=== PATIENT | male | born 1990 | race Caucasian/White ===

== ENCOUNTER 2019-07-10 12:14 | Outpatient (CLI) | payer SELFPAY ==
--- NOTE | 2019-07-10 12:31 | US_ITS ---
WS: [id number] ULTRASOUND ABDOMEN CLINICAL INFORMATION: RUQ PAIN COMPARISON: None. FINDINGS: Liver Size: Normal. Craniocaudal length: 11.1 cm. Echogenicity: Normal. Surface nodularity: None. Mass (size and location): None. Bile ducts Intrahepatic ducts: Normal. Common bile duct diameter: 0.4 cm. Gallbladder Normal. Gallstones: None. Gallbladder sludge: None. Gallbladder wall thickening: None. Pericholecystic fluid: None. Sonographic Thibodeaux sign: Absent. Pancreas Findings Hypoechoic area involving the mid body of the pancreas is indeterminant. Recommend further e valuation with CT abdomen pelvis. Recommend correlation with pancreatic function studies. Spleen Splenomegaly: None. Craniocaudal length: 11.0 cm. Right kidney: Normal. Hydronephrosis: None. Size: 10.8 cm x 5.4 cm x 3.8 cm Left kidney: Normal. Hydronephrosis: None. Size: 10.3 cm x 5.3 cm x 5.1 cm. Abdominal aorta and IVC Visualized portions are normal. Ascites: None. US/US abdomen complete* [id number] IMPRESSION: 1. Liver and gallbladder are normal. 2. Ill-defined hypoechoic lesion involving the body of the pancreas is nonspec ific and may represent artifact but indeterminant. Recommend contrast-enhanced CT abdomen pelvis for better anatomic detail 3. No hydronephrosis in either kidney.
== END 2019-07-10 12:15 | disposition home or self-care (01) ==
LOC: RAD 12:17
PROVIDERS: Family Provider Internal Medicine; Visit Provider Nurse Practitioner Family
DX: R10.11 Right upper quadrant pain (principal)
CPT/HCPCS: 76700

== ENCOUNTER 2019-07-10 17:13 | Emergency (ER) | payer SELFPAY ==
[2019-07-10] VITALS (12 sets, daily range): BP systolic 128–161; BP diastolic 80–84; PULSE 79; RESP 18; TEMP 36.6; O2SAT 95–100; BMI 23.1
--- NOTE | 2019-07-10 18:12 | ED_ITS ---
HPI - Abdominal Pain General: Chief Complaint: Abdominal Pain Stated Complaint: abdominal pain/N/D Time Seen by Provider: 07/10/19 17:30 History of Present Illness: HPI narrative: Patient is a 28-year-old male who comes to the ED with abdominal pain, nausea and vomiting. Symptoms started about 2 days ago. He has had these attacks in the past and the last one was about 5 months ago. His abdominal pain is in the epigastric region and in the right upper quadrant. Abdominal pain is rated an 8 out of 10. pain improves temporarily after he vomits. He says he has had a mild fever in the past 24 hours. Patient states for last 2 days he has not been able to keep anything down. Reflux and nausea get worse when he is laying down. He has a history of acid reflux and was taking ranitidine but stopped after all the recalls for that medication. He has not been taking any acid reflux medications since. Patient says that pain and nausea gets worse when he eats greasy and fatty foods. Patient had a abdominal ultrasound performed earlier today and it showed that the liver and gallbladder were normal but there was an ill-defined hypo-echoic lesion involving the body of the pancreas. CT of abdomen with IV contrast recommended for further evaluation. Associated Symptoms: Reports fever(s), nausea and vomiting; Denies chills, constipation, diarrhea, dysuria, hematochezia and hematuria Review of Systems Const: Reports: fever; Denies: chills or fatigue Eyes: Denies: change in vision or eye discomfort ENMT: Denies: throat pain, painful swallowing, nasal discharge or nasal congestion Card: Denies: chest pain, palpitations, edema, swelling of feet/ankles, shortness of breath on exertion or shortness of breath when lying down Resp: Denies: shortness of breath, productive cough or non-productive cough GI: Reports: abdominal pain (RUQ and epigastric), nausea and vomiting; Denies: diarrhea, constipation or blood in stool : Denies: flank pain, difficulty urinating, painful urination or blood in urine Musc: Denies: neck pain, back pain or extremity swelling Skin/Breast: Denies: rash or new lesion Neuro: Denies: headache, numbness in extremities or weakness in extremities PFS ED PFSH: Social History Smoking and tobacco status: current every day smoker Physical Exam Narrative: EXAM NARRATIVE: Patient is a 28-year-old male who appears in some discomfort when I entered the room. He had just recently vomited and emesis was in the bed next to him. 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; not comfortable HENMT: COMMON NORMALS: normocephalic HEAD & SCALP: normocephalic MOUTH: moist mucous membranes abnormal (mild) Details: parched THROAT: posterior oropharynx normal and uvula midline Eye: COMMON NORMALS: PERRL PUPIL: Yes PERRL Neck/C-Spine: COMMON NORMALS: supple GENERAL: Yes normal visual inspection Lymph: LYMPHATIC: lymphadenopathy (Left anterior cervical lymph node palpated- 2cm nontender) Resp: COMMON NORMALS: normal respiratory effort, no retractions, no use of accessory muscles and clear to auscultation bilaterally AUSCULTATION: clear to auscultation bilaterally Cardio: COMMON NORMALS: regular rate, regular rhythm, S1 normal heart sound, S2 normal heart sound, no gallops, no clicks, no murmurs and peripheral pulses 2+ throughout RATE: regular rate RHYTHM: regular rhythm HEART SOUNDS: S1 normal and S2 normal PERIPHERAL PULSES: pulses 2+ throughout GI: COMMON NORMALS: normal to inspection, nondistended, normoactive bowel sounds, soft to palpation and no masses AUSCULTATION: Yes normoactive bowel sounds PALPATION: Yes soft and Yes tender Details: RUQ (positive thibodeaux's sign) and other (epigastric) : COMMON NORMALS: Yes no CVA tenderness BLADDER/KIDNEY EXAM: Yes no CVA tenderness Back/Pelvis: COMMON NORMALS: no CVA tenderness Extremity: COMMON NORMALS: normal to inspection, normal capillary refill and no pedal edema Neuro: COMMON NORMALS: oriented x3 SENSORIUM/ORIENTATION: Yes alert GAIT: Yes normal gait Skin: COMMON NORMALS: no rashes or lesions noted GENERAL SKIN EXAM: no rashes or lesions noted and dry skin Course Reevaluation(s): Reevaluation #1: I switched patient from IV Zofran to a dose of Reglan IV and patient's nausea improved greatly. He says he is feeling a lot better after the 3 L of normal saline he received through the IV. Patient also states the Protonix given IV has helped his symptoms as well. Vital Signs: Vital signs: Vital Signs Temperature 97.9 F 07/10/19 17:17 Pulse Rate 79 07/10/19 17:17 Respiratory Rate 18 07/10/19 18:30 Blood Pressure 136/84 07/10/19 20:56 Pulse Oximetry 95 07/10/19 23:05 MDM - Abdominal Pain MDM Narrative: Medical decision making narrative: Patient is a 28-year-old male who comes to the ED with epigastric and right upper quadrant pain along with nausea and vomiting. Denies any diarrhea. An abdominal ultrasound was performed this morning before patient came to the ED. the results showed normal gallbladder and no gallstones seen. There was a possible mass seen on the head of the pancreas and a CT of the abdomen with IV contrast is recommended for further evaluation. Physical exam was remarkable for epigastric and right upper quadrant tenderness. Positive Thibodeaux sign. Patient appeared uncomfortable and vomited multiple times while here in the ED. CBC was remarkable for an elevated white blood cell count of 13.1. CMP and lipase were unremarkable. CT of the abdomen pelvis showed diffuse colitis no abscess or free air and an unremarkable appendix. Patient was given 3 L of IV normal saline, Reglan, Protonix, Flagyl and ciprofloxacin. Patient's symptoms greatly improved after treatment. He was feeling a lot better. Patient was then discharged with biliary colic and colitis. Given a prescription for Flagyl, Protonix and Reglan. I instructed patient stop taking Zofran at home and to take the Reglan to help with his nausea. Patient will follow-up with PCP in 5 to 7 days reevaluation. I informed being come back to the ED if his symptoms worsen. Patient understood and agreed with plan. Lab Data: Attestation: I reviewed the patient's lab results. Labs: Lab Results 07/10/19 07/10/19 07/10/19 Range/Units 18:21 18:21 18:21 WBC 13.1 H (4.0-10.0) 10^3/ uL RBC 5.57 H (4.1-5.3) 10^6/u L Hgb 17.5 H (11.7-16.6) g/dL Hct 53.4 H (42.0-52.0) % MCV 95.9 H (80-94) fL MCH 31.4 (28.0-34.0) pg MCHC 32.8 (30.0-36.0) g/dL RDW 12.2 (12.1-15.1) % Plt Count 285 (130-400) 10^3/c mm MPV 9.8 (7.4-10.4) fL Neut % (Auto) 88.5 % Lymph % (Auto) 5.6 % [place] % (Auto) 5.1 % Eos % (Auto) 0.1 % Baso % (Auto) 0.2 % Neut # (Auto) 11.6 H (1.8-7.7) 10^3/u L Lymph # (Auto) 0.7 L (0.8-4.8) 10^3/u L [place] # (Auto) 0.7 (0.2-0.9) 10^3/u L Eos # (Auto) 0.0 (0.0-0.8) 10^3/u L Baso # (Auto) 0.0 (0.0-0.1) 10^3/u L Nucleated RBC % (a uto) 0 % Nucleated RBCs # 0.0 /100WBC Sodium 139 (136-145) mmol/L Potassium 4.6 (3.5-5.1) mmol/L Chloride 97 L (98-107) mmol/L Carbon Dioxide 28 (22-29) mmol/L Anion Gap 18.6 (5-19) BUN 13 (6-20) mg/dL Creatinine 1.2 (0.7-1.2) mg/dL GFR Calculation 71.6 L (90-130) mL/min Glucose 108 (65-115) mg/dL Calculated Osmolal ity 285 (285-295) mOsm/k g Calcium 10.3 (8.5-10.5) mg/dL Total Bilirubin 0.6 (0.15-1.2) mg/dL AST 20 (0-40) U/L ALT 16 (0-41) U/L Alkaline Phosphata se 93 (40-130) IU/L Total Protein 8.4 (6.6-8.7) g/dL Albumin 4.8 (3.5-5.2) g/dL Globulin 3.6 (1.3-4.6) g/dL Lipase 31 (13-60) U/L Urine Color (Yellow) Urine Appearance (CLEAR) Urine pH (5-7) Ur Specific Gravit y (1.005-1.030) Urine Protein (Negative) Urine Glucose (UA) (Normal) Urine Ketones (Negative) Urine Blood (Negative) Urine Nitrate (Negative) Urine Bilirubin (NEGATIVE) Urine Urobilinogen (Negative) mg/dL Ur Leukocyte Moraima ase (Negative) Urine RBC (0-2) /hpf Urine WBC (0-5) /hpf Ur Squamous Epith Cells (0-5) Ur Transition Epit h Cell /hpf Ur Renal Epithelia l Cell /hpf Urine Bacteria (NONE) Urine Mucus H. pylori IgG Anti body Negative (Negative) 07/10/19 Range/Units 22:00 WBC (4.0-10.0) 10^3/ uL RBC (4.1-5.3) 10^6/u L Hgb (11.7-16.6) g/dL Hct (42.0-52.0) % MCV (80-94) fL MCH (28.0-34.0) pg MCHC (30.0-36.0) g/dL RDW (12.1-15.1) % Plt Count (130-400) 10^3/c mm MPV (7.4-10.4) fL Neut % (Auto) % Lymph % (Auto) % [place] % (Auto) % Eos % (Auto) % Baso % (Auto) % Neut # (Auto) (1.8-7.7) 10^3/u L Lymph # (Auto) (0.8-4.8) 10^3/u L [place] # (Auto) (0.2-0.9) 10^3/u L Eos # (Auto) (0.0-0.8) 10^3/u L Baso # (Auto) (0.0-0.1) 10^3/u L Nucleated RBC % (a uto) % Nucleated RBCs # /100WBC Sodium (136-145) mmol/L Potassium (3.5-5.1) mmol/L Chloride (98-107) mmol/L Carbon Dioxide (22-29) mmol/L Anion Gap (5-19) BUN (6-20) mg/dL Creatinine (0.7-1.2) mg/dL GFR Calculation (90-130) mL/min Glucose (65-115) mg/dL Calculated Osmolal ity (285-295) mOsm/k g Calcium (8.5-10.5) mg/dL Total Bilirubin (0.15-1.2) mg/dL AST (0-40) U/L ALT (0-41) U/L Alkaline Phosphata se (40-130) IU/L Total Protein (6.6-8.7) g/dL Albumin (3.5-5.2) g/dL Globulin (1.3-4.6) g/dL Lipase (13-60) U/L Urine Color Yellow (Yellow) Urine Appearance Clear (CLEAR) Urine pH 5 (5-7) Ur Specific Gravit y 1.015 (1.005-1.030) Urine Protein 2+ H (Negative) Urine Glucose (UA) Norm (Normal) Urine Ketones 3+ H (Negative) Urine Blood Neg (Negative) Urine Nitrate Negative (Negative) Urine Bilirubin 1+ H (NEGATIVE) Urine Urobilinogen 1 H (Negative) mg/dL Ur Leukocyte Moraima ase Negative (Negative) Urine RBC 0-4 H (0-2) /hpf Urine WBC None (0-5) /hpf Ur Squamous Epith Cells 0-4 H (0-5) Ur Transition Epit h Cell None /hpf Ur Renal Epithelia l Cell N /hpf Urine Bacteria Trace (NONE) Urine Mucus 4+ H. pylori IgG Anti body (Negative) Imaging Data ^: CT Abd/Pel: Attestation: I personally reviewed and interpreted this imaging study as follows: Radiologist's impression: [place] [address] CT Scan Report Signed Patient: Alvin Dubois Unit #: [id number] : 1990 Age/Sex: 28 / M ADM Date: 07/10/19 Loc: ER Room/Bed: Attending Dr: Ordering Provider/Ordering MD: Tiburcio Best Date of Service: 07/10/19 Procedure(s): CT abdomen pelvis w con* [id number] Accession Number(s): [id number] Report Number: [id number] PROCEDURE INFORMATION: Exam: CT Abdomen And Pelvis With Contrast Exam date and time: 07/10/2019 7:07 PM Age: 28 years old Clinical indication: Nausea and vomiting; Abdominal pain; Prior surgery; Surgery type: Hernia; Additional info: Abdom pain, n/v, TECHNIQUE: Imaging protocol: Computed tomography of the abdomen and pelvis with intravenous contrast. Total DLP: 571.81 mGy-cm Radiation optimization: All CT scans at this facility use at least one of these dose optimization techniques: automated exposure control; mA and/or kV adjustment per patient size (includes targeted exams where dose is matched to clinical indication); or iterative reconstruction. Contrast material: OMNI 3020; Contrast volume: 95 ml; Contrast route: IV; COMPARISON: CT abdomen pelvis w con* [id number] 07/04/2016 9:54 PM FINDINGS: Liver: Unremarkable.No mass. Gallbladder and bile ducts: Normal. No calcified stones. No ductal dilation. Pancreas: Normal. No ductal dilation. Spleen: Normal. No splenomegaly. Adrenals: Normal. No mass. Kidneys and ureters: There is no evidence of hydronephrosis. There is no evidence of renal calcifications. Stomach and bowel: There is diffuse wall thickening of the colon with haziness of the adjacent fat compatible with diffuse colitis. This appearance is very similar to the old exam. The differential diagnosis would include infectious, and pseudomembranous colitis. No diverticulitis. No definite wall thickening of the small bowel. Appendix: A normal appendix is identified. Intraperitoneal space: No fluid collection, free air or abscess. Vasculature: Unremarkable.No abdominal aortic aneurysm. Lymph nodes: Unremarkable.No enlarged lymph nodes. Bladder: The bladder is normal. Reproductive: Unremarkable as visualized. Bones/joints: Unremarkable. No acute fracture. Soft tissues: Unremarkable. Other findings: No ileus or obstruction. CT/CT abdomen pelvis w con* [id number] IMPRESSION: Diffuse colitis. No abscess or free air. Unremarkable appendix. Radiation Dose CTDIVOL = (mGy): DLP = 571.81 (mGy-cm) Dictated By: Ashley Real Signed By: Ashley Real Signed Date/Time: 07/10/191937 DD/ 36 Other Data: Attestation for Other Data: I personally reviewed and interpreted the following: Other Data: Ultrasound was performed this morning at [facility] before patient came to ED. I reviewed this ultrasound report. [address] [place] [address] Ultrasound Report Signed Patient: Alvin Dubois Unit #: [id number] : 1990 Age/Sex: 28 / M ADM Date: 07/10/19 Loc: [facility] Room/Bed: Attending Dr: Niya Hodgson APRN Ordering Provider/Ordering MD: Niya Hodgson APRN Date of Service: 07/10/19 Procedure(s): US abdomen complete* [id number] Accession Number(s): [id number] Report Number: [id number] WS: [id number] ULTRASOUND ABDOMEN CLINICAL INFORMATION: RUQ PAIN COMPARISON: None. FINDINGS: Liver Size: Normal. Craniocaudal length: 11.1 cm. Echogenicity: Normal. Surface nodularity: None. Mass (size and location): None. Bile ducts Intrahepatic ducts: Normal. Common bile duct diameter: 0.4 cm. Gallbladder Normal. Gallstones: None. Gallbladder sludge: None. Gallbladder wall thickening: None. Pericholecystic fluid: None. Sonographic Thibodeaux sign: Absent. Pancreas Findings Hypoechoic area involving the mid body of the pancreas is indeterminant. Recommend further evaluation with CT abdomen pelvis. Recommend correlation with pancreatic function studies. Spleen Splenomegaly: None. Craniocaudal length: 11.0 cm. Right kidney: Normal. Hydronephrosis: None. Size: 10.8 cm x 5.4 cm x 3.8 cm Left kidney: Normal. Hydronephrosis: None. Size: 10.3 cm x 5.3 cm x 5.1 cm. Abdominal aorta and IVC Visualized portions are normal. Ascites: None. US/US abdomen complete* [id number] IMPRESSION: 1. Liver and gallbladder are normal. 2. Ill-defined hypoechoic lesion involving the body of the pancreas is nonspecific and may represent artifact but indeterminant. Recommend contrast-enhanced CT abdomen pelvis for better anatomic detail 3. No hydronephrosis in either kidney. Dictated By: Andi Hutchinson MD Signed By: Andi Hutchinson MD Signed Date/Time: 07/10/19 1259 DD/ 1254 Discharge Plan Discharge Patient Disposition: Home, Self-Care Clinical Impression: Biliary colic symptom, Colitis Condition: Stable Prescriptions: New Reglan 5 mg tablet 10 mg PO Q6H Qty: 30 RF: 0 Protonix 40 mg tablet,delayed release (DR/EC) 40 mg PO DAILY Qty: 30 RF: 0 Flagyl 500 mg tablet 500 mg PO BID 10 Days Qty: 20 RF: 0 No Action Zofran 4 mg Tablet 4 mg PO Q6H PRN (Reason: Nausea) RF: 0 Discharge Orders: Discharge Order (Routine); Ordered 07/10/19 Ordered By: Tiburcio Best Referrals: Benoit Schilling DO [Primary Care Provider] - Discharge Diet: Advance as tolerated Discharge Activity: Increase activity as tolerated Patient Instructions: Biliary Colic (ED) Activity Restrictions/Additional Instructions: Follow-up with your PCP in 5 to 7 days for reevaluation. Take full course of antibiotics as prescribed. Take the Reglan as prescribed for nausea. Stop taking Zofran if you are taking the Reglan daily for nausea. I am also sending you home with a prescription for Protonix and you can take that daily to help with acid reflux. Drink plenty of fluids and stay hydrated. Try to avoid fatty and greasy foods that can cause symptoms. Return to ED if symptoms worsen. Discharge Date/Time: 07/10/19 23:17 Coding Level of Care Code ED Strainer Tender for Mechelle Ellington Exam Comprehensive
[2019-07-10 18:25] LABS: Basophils % 0.2 %; Eosinophils % 0.1 %; Hematocrit 53.4 % (42.0-52.0); Hemoglobin 17.5 g/dL (11.7-16.6); Lymphocytes # 0.7 10^3/uL (0.8-4.8); Lymphocytes % 5.6 %; Mean Corpuscular HGB Conc 32.8 g/dL (30.0-36.0); Mean Corpuscular Hemoglobin 31.4 pg (28.0-34.0); Mean Corpuscular Volume 95.9 fL (80-94); Mean Platelet Volume 9.8 fL (7.4-10.4); Monocytes # 0.7 10^3/uL (0.2-0.9); Monocytes % 5.1 %; Neutrophils # 11.6 10^3/uL (1.8-7.7); Neutrophils % 88.5 %; Nucleated Red Blood Cells % 0 %; Platelet Count 285 10^3/cmm (130-400); Red Blood Count 5.57 10^6/uL (4.1-5.3); Red Cell Distribution Width 12.2 % (12.1-15.1); White Blood Count 13.1 10^3/uL (4.0-10.0)
[2019-07-10] MEDS: ondansetron 2 mg/ML SDV 2 mL 4 MG IVP ×2 (18:27→21:56)
[2019-07-10] MEDS: morphine 4 mg/mL SDV 1 mL IVP (18:30)
[2019-07-10] MEDS: sodium chloride 0.9% 1,000 ML 999 ML IV ×3 (18:31→21:59)
[2019-07-10] MEDS: lidocaine 2% viscous 15 ML, aluminum-mag hydrox-simethicon 30 ML, sucralfate oral liq 1 GM PO (18:32)
[2019-07-10 18:41] LABS: Alanine Aminotransferase 16 U/L (0-41); Albumin Level 4.8 g/dL (3.5-5.2); Alkaline Phosphatase 93 IU/L (40-130); Anion Gap 18.6 (5-19); Aspartate Amino Transferase 20 U/L (0-40); Blood Urea Nitrogen 13 mg/dL (6-20); Calcium 10.3 mg/dL (8.5-10.5); Carbon Dioxide 28 mmol/L (22-29); Chloride 97 mmol/L (98-107); Globulin 3.6 g/dL (1.3-4.6); Glomerular Filtration Rate 71.6 mL/min (90-130); Glucose 108 mg/dL (65-115); Lipase 31 U/L (13-60); Osmolality Calculated 285 mOsm/kg (285-295); Potassium 4.6 mmol/L (3.5-5.1); Sodium 139 mmol/L (136-145); Total Bilirubin 0.6 mg/dL (0.15-1.2); Total Protein 8.4 g/dL (6.6-8.7)
--- NOTE | 2019-07-10 18:59 | CTR_ITS ---
PROCEDURE INFORMATION: Exam: CT Abdomen And Pelvis With Contrast Exam date and time: 07/10/2019 7:07 PM Age: 28 years old Clinical indication: Nausea and vomiting; Abdominal pain; Prior surgery; Surgery type: Hernia; Additional info: Abdom pain, n/v, TECHNIQUE: Imaging protocol: Computed tomography of the abdomen and pelvis with intravenous contrast. Total DLP: 571.81 mGy-cm Radiation optimization: All CT scans at this facility use at least one of these dose optimization techniques: automated exposure control; mA and/or kV adjustment per patient size (includes targeted exams where dose is matched to clinical indication); or iterative reconstruction. Contrast material: OMNI 3020; Contrast volume: 95 ml; Contrast route: IV; COMPARISON: CT abdomen pelvis w con* [id number] 07/04/2016 9:54 PM FINDINGS: Liver: Unremarkable.No mass. Gallbladder and bile ducts: Normal. No calcified stones. No ductal dilation. Pancreas: Normal. No ductal dilation. Spleen: Normal. No splenomegaly. Adrenals: Normal. No mass. Kidneys and ureters: There is no evidence of hydronephrosis. There is no evidence of renal calcifications. Stomach and bowel: There is diffuse wall thickening of the colon with haziness of the adjacent fat compatible with diffuse colitis. This appearance is very similar to the old exam. The differential diagnosis would include infectious, and pseudomembranous colitis. No diverticulitis. No definite wall thickening of the small bowel. Appendix: A normal appendix is identified. Intraperitoneal space: No fluid collection, free air or abscess. Vasculature: Unremarkable.No abdominal aortic aneurysm. Lymph nodes: Unremarkable.No enlarged lymph nodes. Bladder: The bladder is normal. Reproductive: Unremarkable as visualized. Bones/joints: Unremarkable. No acute fracture. Soft tissues: Unremarkable. Other findings: No ileus or obstruction. CT/CT abdomen pelvis w con* [id number] IMPRESSION: Diffuse colitis. No abscess or free air. Unremarkable appendix. Radiation Dose CTDIVOL = (mGy): DLP = 571.81 (mGy-cm)
[2019-07-10] MEDS: iohexol 300 mg/mL 100 mL Btl IV (19:21)
[2019-07-10 19:56] LABS: H. Pylori IgG Antibody Negative (Negative)
[2019-07-10] MEDS: metoclopramide 5 mg/mL SDV 2 mL 10 MG IVP (20:46)
[2019-07-10] MEDS: pantoprazole 40 mg SDV IVP (20:50)
[2019-07-10] MEDS: metroNIDAZOLE IV 500 MG/100 ML PREMIX 100 MG IV (20:54)
[2019-07-10] MEDS: ciprofloxacin 400 MG/200 ML PREMIX 200 MG IV (22:00)
[2019-07-11 00:03] LABS: Bilirubin Urine 1+ (NEGATIVE); Blood Urine Neg (Negative); Glucose Urine UA Norm (Normal); Ketones Urine 3+ (Negative); Nitrate Urine Negative (Negative); Protein Urine 2+ (Negative); Specific Gravity, Urine 1.015 (1.005-1.030); Urine Appearance Clear (CLEAR); Urine Color Yellow (Yellow); Urobilinogen Urine 1 mg/dL (Negative); pH Urine 5 (5-7)
[2019-07-11 00:04] LABS: Leukocyte Esterase Urine Negative (Negative)
[2019-07-11 00:05] LABS: Add Urine Culture? No; Bacteria Urine TRACE; Mucus Urine 4+; RBC Urine 0-4 /hpf (0-2); Renal Epithelial Cells Urine N /hpf; Squamous Epithelial Cell Urine 0-4 (0-5)
== END 2019-07-10 23:17 | disposition home or self-care (01) ==
PROVIDERS: Emergency Provider Physician Assistant; Family Provider Internal Medicine; PCP Internal Medicine
DX: K52.9 Noninfective gastroenteritis and colitis, unspecified (principal); K80.50 Calculus of bile duct without cholangitis or cholecystitis without obstruction; F17.210 Nicotine dependence, cigarettes, uncomplicated
CPT/HCPCS: 12345; 74177; 80053; 81001; 83690; 85025; 86677; 96365; 96367; 96374; 96375; 96376; 99284; A9270; C9113; J0744; J2270; J2405; J2765; J7030; Q9967; S0030

== ENCOUNTER 2022-05-29 18:26 | Emergency (ER) | payer SELFPAY ==
[2022-05-29 18:34] VITALS: BP 172/95; PULSE 69; RESP 18; TEMP 36.7; O2SAT 98
--- NOTE | 2022-05-29 18:52 | ED_ITS ---
HPI - Abdominal Pain General: Chief Complaint: Abdominal Pain Stated Complaint: abd pain, hx of gastritis Time Seen by Provider: 05/29/22 18:34 History of Present Illness: Mr. Dubois is a 31-year-old gentleman without significant past medical history presenting to the emergency department for abdominal pain with nausea and vomiting. He reports onset of symptoms 2 days ago subacute without known specific provoking factor. He endorses recurrence near yearly with similar symptoms. He endorses sharp right upper quadrant abdominal pain associated with multiple episodes of emesis. Emesis does have a maroon color typically at the end. He has had decreased stool output and p.o. i ntake. He notes more concentrated urine. Otherwise denies systemic illness. Intensity symptoms is moderate to severe. Worse with palpation and movement. No other specific changes in health, exacerbating, or alleviating factors identified. Onset (ago): day(s) Pain Consistency: constant Location: RUQ Severity: moderate Quality: aching and sharp Radiation: none Migration to: no migration Exacerbating factors: vomiting, movement and other Relieving factors: nothing Associated Symptoms: Reports nausea, poor appetite and vomiting Review of Systems General: Reports: 10 or more systems reviewed and unremarkable except in HPI and below GI: Reports: nausea and vomiting PFSH ED PFSH: Medical History No significant past medical history Surgical History No significant past surgical history Social History Smoking and tobacco status: current every day smoker Physical Exam Const: COMMON NORMALS: alert GENERAL APPEARANCE: cooperative and well developed HENMT: COMMON NORMALS: normocephalic and atraumatic HEAD & SCALP: normocephalic and atraumatic Eye: COMMON NORMALS: conjunctivae normal CONJUNCTIVA: Yes conjunctivae normal SCLERA: sclerae normal Neck/C-Spine: COMMON NORMALS: supple GENERAL: Yes trachea midline Resp: COMMON NORMALS: clear to auscultation bilaterally EFFORT & INSPECTION: Yes able to speak in complete sentences AUSCULTATION: clear to auscultation bilaterally Cardio: COMMON NORMALS: regular rate and regular rhythm RATE: regular rate RHYTHM: regular rhythm GI: COMMON NORMALS: Soft to palpation PALPATION: Yes Soft to palpation, Yes Tenderness to palpation present (GI) Details: RUQ, No Guarding due to palpation present (GI) and No Rigid due to palpation Extremity: GENERAL: Yes normal exam except as noted and No edema Neuro: COMMON NORMALS: moves all extremities SENSORIUM/ORIENTATION: Yes casandra rt and No Orientation impaired Psych: COMMON NORMALS: mental status grossly normal and Normal thought process present THOUGHT PROCESS: Normal thought process present Course Vital Signs: Vital signs: Vital Signs Temperature 98.1 F 05/29/22 18:34 Pulse Rate 79 05/29/22 21:54 Respiratory Rate 16 05/29/22 21:54 Blood Pressure 136/97 05/29/22 21:54 Pulse Oximetry 97 05/29/22 21:54 Oxygen Delivery Me thod 05/29/22 18:34 MDM - Abdominal Pain Medical Decision Making 31-year-old gentleman presenting with abdominal pain with nausea, vomiting, d iarrhea. Patient also endorses concern for possibly abnormal color emesis. On exam patient mildly ill appearing however nontoxic. Abdominal exam with right upper quadrant and epigastric tenderness without evidence of acute surgical abdomen. Labs notable for hemoconcentration and mild leukocytosis, platelet count is normal. Metabolic panel with likely evidence of dehydration. Lipase is normal. CT does not show evidence of active contrast extravasation. There is enteritis. Hepatic steatosis is also present. During ED course patient treated with antiemetic, analgesia, GI cocktail, IV fl uids. He is improved. Most likely cause of patient's symptoms is enteritis. Patient description of symptoms is not convincing for upper GI bleed and given no recurrence of abnormal colored emesis in the emergency department as well as blood counts and imaging finding does not require inpatient management at this time. Plan to treat in the outpatient setting. The results of ED evaluation were discussed with the patient including prescriptions and/or symptomatic cares (if applicable) including appropriate and responsible use, followup plan, and return precautions. The patient verbalized understanding and felt safe for discharge. Medical Records I reviewed the patient's medical records. Lab Data I reviewed the patient's lab results. 05/29/22 18:56 05/29/22 18:56 Labs/Radiology: Radiology Impressions Abdomen/Pelvis CTA 05/29/22 19:44 IMPRESSION: 1. Negative for contrast extravasation seen to indicate a source of provided history of hematemesis. 2. Hepatic steatosis. 3. Prominent fluid small bowel without dilation may reflect an enteritis. Laboratory Results WBC 13.6 10^3/uL (4.0-10.0) H 05/29/22 18:56 RBC 5.35 10^6/uL (4.1-5.3) H 05/29/22 18:56 Hgb 16.8 g/dL (11.7-16.6) H 05/29/22 18:56 Hct 49.2 % (42.0-52.0) 05/29/22 18:56 MCV 92.0 fl (80-94) 05/29/22 18:56 MCH 31.4 pg (28.0-34.0) 05/29/22 18:56 MCHC 34.1 g/dL (30.0-36.0) 05/29/22 18:56 RDW 12.0 % (12.1-15.1) L 05/29/22 18:56 Plt Count 349 10^3/cmm (130-400) 05/29/22 18:56 MPV 10.1 fL (7.4-10.4) 05/29/22 18:56 Neut % (Auto) 74.2 % 05/29/22 18:56 Lymph % (Auto) 14.9 % 05/29/22 18:56 [place] % (Auto) 10.3 % 05/29/22 18:56 Eos % (Auto) 0.1 % 05/29/22 18:56 Baso % (Auto) 0.2 % 05/29/22 18:56 Neut # (Auto) 10.13 10^3/uL (1.8-7.7) H 05/29/22 18:56 Lymph # (Auto) 2.0 10^3/uL (0.8-4.8) 05/29/22 18:56 [place] # (Auto) 1.4 10^3/uL (0.2-0.9) H 05/29/22 18:56 Eos # (Auto) 0.0 10^3/uL (0.0-0.8) 05/29/22 18:56 Baso # (Auto) 0.0 10^3/uL (0.0-0.1) 05/29/22 18:56 Nucleated RBC % (auto) 0 % 05/29/22 18:56 Nucleated RBCs # 0.0 /100WBC 05/29/22 18:56 PT 14.40 SECONDS (12.1-14.9) 05/29/22 18:56 INR 1.08 (0.8-1.2) 05/29/22 18:56 APTT 26.6 SECONDS (23.9-36.7) 05/29/22 18:56 Sodium 139 mmol/L (136-145) 05/29/22 18:56 Potassium 3.9 mmol/L (3.5-5.1) 05/29/22 18:56 Chloride 97 mmol/L (98-107) L 05/29/22 18:56 Carbon Dioxide 30 mmol/L (22-29) H 05/29/22 18:56 Anion Gap 15.9 (5-19) 05/29/22 18:56 BUN 17 mg/dL (6-20) 05/29/22 18:56 Creatinine 1.1 mg/dL (0.7-1.2) 05/29/22 18:56 GFR Calculation 77.6 mL/min (90-130) L 05/29/22 18:56 Glucose 120 mg/dL (65-115) H 05/29/22 18:56 Calculated Osmolality 291 mOsm/kg (285-295) 05/29/22 18:56 Calcium 10.1 mg/dL (8.5-10.5) 05/29/22 18:56 Total Bilirubin 1.0 mg/dL (0.15-1.2) 05/29/22 18:56 AST 25 U/L (0-40) 05/29/22 18:56 ALT 19 U/L (0-41) 05/29/22 18:56 Alkaline Phosphatase 99 U/L (40-130) 05/29/22 18:56 Total Protein 8.0 g/dL (6.6-8.7) 05/29/22 18:56 Albumin 5.3 g/dL (3.5-5.2) H 05/29/22 18:56 Globulin 2.7 g/dL (1.3-4.6) 05/29/22 18:56 Lipase 24 U/L (13-60) 05/29/22 18:56 Discharge Plan Discharge Patient Disposition: Home Clinical Impression: Abdominal pain, Enteritis, Nausea, vomiting, and diarrhea, Dehydration Condition: Stable Prescriptions: New Pepcid 40 mg tablet 40 mg PO BID 5 Days Qty: 10 0RF ondansetron 4 mg tablet,disintegrating 4 mg PO Q8H PRN (Reason: nausea and vomiting) Qty: 15 0RF oxycodone 5 mg tablet 5 mg PO Q4H PRN (Reason: pain) Qty: 10 0RF azithromycin 500 mg tablet 500 mg PO DAILY 5 Days Qty: 5 0RF No Action Zofran 4 mg Tablet 4 mg PO Q6H PRN (Reason: Nausea) Rx Instructions: pt states he took this today but threw it up Reglan 5 mg tablet 10 mg PO Q6H Qty: 30 0RF Rx Instructions: take 30 mins before meals to help with nausea. Protonix 40 mg tablet,delayed release (DR/EC) 40 mg PO DAILY Qty: 30 0RF Discharge Orders: Discharge ED (Routine); Ordered 05/29/22 Ordered By: Lauri Mosquera Referrals: Benoit Schilling DO [Primary Care Provider] - Discharge Diet: Advance as tolerated and Clear Liquid Discharge Activity: Increase activity as tolerated Patient Instructions: Dehydration (ED), Abdominal Pain (ED), Enteritis (ED), Opioid Safety Activity Restrictions/Additional Instructions: Thank you for visiting the emergency department. You were seen and evaluated for abdominal pain with nausea, vomiting, diarrhea. You are found of dehydration. I do not see evidence of active bleeding on your CT scan. There is evidence of enteritis. You may use [id number] medications such as acetaminophen and ibuprofen for pain however please do not exceed the daily recommended dosage as listed on the packaging and please keep in mind that many namebrand medications contain the same active ingredients. Please avoid these medications if previously instructed to do so by another physician due to other underlying medical condition. I will also prescribe antinausea medication, PPI additional doses, and oxycodone. Use oxycodone cautiously as it is an opioid and only use it for uncontrolled pain with other measures. I would expect improvement in the next few days. Please follow-up with a primary care provider. Return to the emergency department for worsening or uncontrolled symptoms, inability to tolerate medications, or anything else that you are concerned about and feel needs emergency department evaluation. Coding Level of Care Code ED [facility]ant for [facility] Ell[facility]
[2022-05-29 19:04] LABS: Basophils % 0.2 %; Eosinophils % 0.1 %; Hematocrit 49.2 % (42.0-52.0); Hemoglobin 16.8 g/dL (11.7-16.6); Lymphocytes % 14.9 %; Mean Corpuscular HGB Conc 34.1 g/dL (30.0-36.0); Mean Corpuscular Hemoglobin 31.4 pg (28.0-34.0); Mean Platelet Volume 10.1 fL (7.4-10.4); Monocytes # 1.4 10^3/uL (0.2-0.9); Monocytes % 10.3 %; Neutrophils # 10.13 10^3/uL (1.8-7.7); Neutrophils % 74.2 %; Nucleated Red Blood Cells % 0 %; Platelet Count 349 10^3/cmm (130-400); Red Blood Count 5.35 10^6/uL (4.1-5.3); White Blood Count 13.6 10^3/uL (4.0-10.0)
[2022-05-29] MEDS: morphine 4 mg/mL SDV 1 mL IVP (19:08)
[2022-05-29] MEDS: sodium chloride 0.9% 1,000 ML 999 ML IV ×2 (19:08→20:31)
[2022-05-29] MEDS: ondansetron 2 mg/ML SDV 2 mL 4 MG IVP (19:09)
[2022-05-29 19:14] LABS: INR 1.08 (0.8-1.2); Partial Thromboplastin Time 26.6 SECONDS (23.9-36.7)
[2022-05-29 19:20] LABS: Alanine Aminotransferase 19 U/L (0-41); Albumin Level 5.3 g/dL (3.5-5.2); Alkaline Phosphatase 99 U/L (40-130); Anion Gap 15.9 (5-19); Aspartate Amino Transferase 25 U/L (0-40); Blood Urea Nitrogen 17 mg/dL (6-20); Calcium 10.1 mg/dL (8.5-10.5); Carbon Dioxide 30 mmol/L (22-29); Chloride 97 mmol/L (98-107); Globulin 2.7 g/dL (1.3-4.6); Glomerular Filtration Rate 77.6 mL/min (90-130); Glucose 120 mg/dL (65-115); Lipase 24 U/L (13-60); Osmolality Calculated 291 mOsm/kg (285-295); Potassium 3.9 mmol/L (3.5-5.1); Sodium 139 mmol/L (136-145)
--- NOTE | 2022-05-29 19:44 | CTR_ITS ---
PROCEDURE INFORMATION: Exam: CTA Abdomen and Pelvis With Contrast Exam date and time: 05/29/2022 7:52 PM Age: 31 years old Clinical indication: Abdominal pain; Generalized; Prior surgery; Surgery date: 6+ months; Surgery type: Hernia; Additional info: Epigastric and ruq abd pain, possible hematemesis TECHNIQUE: Imaging protocol: Computed tomographic angiography of the abdomen and pelvis with contrast. 3D rendering (Not supervised by radiologist): MIP and/or 3D reconstructed images were created by the technologist. Radiation optimization: All CT scans at this facility use at least one of these dose optimization techniques: automated exposure control; mA and/or kV adjustment per patient size (includes targeted exams where dose is matched to clinical indication); or iterative reconstruction. Contrast material: OMNIPAQUE 350; Contrast volume: 100 ml; Contrast route: INTRAVENOUS (IV); REPORTING DATA: Count of CT and Cardiac NM exams in prior 12 months: This patient has received 0 known CTs and 0 known cardiac nuclear medicine studies in the 12 months prior to the current study. COMPARISON: CT abdomen pelvis w con* [id number] 07/10/2019 7:20 PM RADIATION DOSE METRICS: Total DLP (mGy-cm): 413.95 FINDINGS: Aorta: No aortic aneurysm. No aortic dissection. Celiac trunk and mesenteric arteries: No occlusion or significant stenosis. Renal arteries: No occlusion or significant stenosis. Right iliac arteries: No occlusion or significant stenosis. Left iliac arteries: No occlusion or significant stenosis. Liver: Hepatic steatosis. Gallbladder and bile ducts: Unremarkable. No calcified stones. No ductal dilation. Pancreas: Unremarkable. No mass. No ductal dilation. Spleen: Unremarkable. No splenomegaly. Adrenal glands: Unremarkable. No mass. Kidneys and ureters: Unremarkable. No solid mass. No hydronephrosis. Stomach and bowel: Prominent fluid small bowel without dilation may reflect an enteritis. Appendix: No evidence of appendicitis. Intraperitoneal space: Unremarkable. No free air. No significant fluid collection. Lymph nodes: Unremarkable. No enlarged lymph nodes. Urinary bladder: Unremarkable. No mass. Reproductive: Unremarkable as visualized. Bones/joints: No acute fracture. Soft tissues: Unremarkable. CT/CT angio abdomen pelvis [id number] IMPRESSION: 1. Negative for contrast extravasation seen to indicate a source of provided history of hematemesis. 2. Hepatic steatosis. 3. Prominent fluid small bowel without dilation may reflect an enteritis.
[2022-05-29] MEDS: iohexol 350 mg/mL 500 mL Btl (per mL) IV (19:56)
[2022-05-29] MEDS: lidocaine 2% viscous 15 ML, aluminum-mag hydrox-simethicon 30 ML, sucralfate oral liq 1 GM PO (20:31)
[2022-05-29 21:54] VITALS: BP 136/97; PULSE 79; RESP 16; O2SAT 97
== END 2022-05-29 21:55 | disposition home or self-care (01) ==
PROVIDERS: Emergency Provider Emergency Medicine; PCP Internal Medicine
DX: K52.9 Noninfective gastroenteritis and colitis, unspecified (principal); E86.0 Dehydration; K76.0 Fatty (change of) liver, not elsewhere classified; D72.829 Elevated white blood cell count, unspecified; F17.210 Nicotine dependence, cigarettes, uncomplicated
CPT/HCPCS: 74174; 80053; 83690; 85025; 85610; 85730; 96361; 96374; 96375; 99285; J2270; J2405; J7030; Q9967

== ENCOUNTER 2022-05-31 10:24 | Emergency (ER) | payer SELFPAY ==
--- NOTE | 2022-05-31 10:40 | ED_ITS ---
HPI - Abdominal Pain General: Chief Complaint: GI Bleed Stated Complaint: abd pain/passing blood Time Seen by Provider: 05/31/22 10:28 Source: patient and family Mode of arrival: ambulatory Limitations: no limitations History of Present Illness: Patient is a 31-year-old male who presents to ED today with complaints of abdominal pain, nausea, vomiting, and one episode of diarrhea earlier today. Patient was seen at our facility about 2 days ago for similar symptoms. On that visit his lab work was overall fairly benign. CT of his abdomen/pelvis showed nonspecific enteritis. Patient states he is concerned as his one episode of diarrhea earlier today looked dark and he noticed bright red blood when he wiped. Patient as well as family in the room states he has had multiple similar episodes in the past stating he will get anywhere from 1-3 episodes annually. He did have an endoscopy at some point which showed gastric ulcers. He states he was on omeprazole for 3 months without improvement in symptoms. He does report habitual marijuana use and at some point was told this could be hyperemesis cannabinoid syndrome. He states he stopped using marijuana for over 4 months and did not notice any change in his symptoms. MD elicited complaint: abdominal pain Pertinent past history: none Onset (ago): day(s) Pain Consistency: constant Location: Diffuse Severity: moderate Pain scale (0-10): 5 Quality: cramping Radiation: none Migration to: no migration Exacerbating factors: eating Relieving factors: nothing Associated Symptoms: Reports belching, GI cramping, diarrhea (x 1 today), heartburn, hematochezia, nausea and vomiting; Denies chills, dysuria, fever(s), hematuria and melena Review of Systems Const: Denies: fever(s), chills, body aches, fatigue or malaise Card: Denies: chest pain Resp: Denies: dyspnea GI: Reports: abdominal pain, nausea, vomiting, heartburn, diarrhea (x 1 today), GI cramping, belching and hematochezia; Denies: rectal swelling, rectal itching or melena : Denies: flank pain, difficulty urinating, dysuria, urinary frequency, urinary urgency, urinary hesitancy, hematuria, testicular pain or scrotal swel ling Musc: Denies: neck pain, back pain, extremity pain or joint pain Skin/Breast: Denies: rash Neuro: Denies: headache(s), numbness in extremities, weakness in extremities, sensory changes or dizziness PFS ED PFSH: Medical History No significant past medical history Surgical History No significant past surgical history Social History Smoking and tobacco status: current every day smoker Physical Exam Const: COMMON NORMALS: no acute distress, average body habitus, patient oriented x3, no limitations, healthy appearing, alert and well nourished GENERAL APPEARANCE: cooperative ORIENTATION/CONSCIOUSNESS: Yes awake, Yes oriented to person, Yes oriented to place and Yes oriented to time Resp: COMMON NORMALS: normal respiratory effort and clear to auscultation bilaterally AUSCULTATION: clear to auscultation bilaterally Cardio: COMMON NORMALS: regular rate and regular rhythm RATE: regular rate RHYTHM: regular rhythm GI: COMMON NORMALS: Normal to inspection, nondistended, normoactive bowel sounds present, Soft to palpation, No hepatosplenomegaly present and no masses INSPECTION: Yes normal to inspection PALPATION: Yes Soft to palpation, Yes Tenderness to palpation present (GI) (diffusely; non-surgical), No Guarding due to palpation present (GI), No Rigid due to palpation and Yes No hepatosplenomegaly present Extremity: COMMON NORMALS: normal to inspection GENERAL: Yes normal exam except as noted Neuro: NIRALI COMA SCALE: document GCS findings Dequincy coma scale eye opening: Spontaneous Dequincy coma scale verbal response: Orientated Dequincy coma scale motor response: Obey commands Nirali coma scale total score: 15 COMMON NORMALS: patient oriented x3, moves all extremities, no focal motor deficits and no sensory deficits noted SENSORIUM/ORIENTATION: Yes alert, Yes oriented to person, Yes oriented to place and Yes oriented to time Skin: COMMON NORMALS: no rashes or lesions noted GENERAL SKIN EXAM: no rashes or lesions noted Course Vital Signs: Vital signs: Vital Signs Temperature 98.3 F 05/31/22 10:41 Pulse Rate 80 05/31/22 10:41 Respiratory Rate 18 05/31/22 10:41 Blood Pressure 147/91 05/31/22 10:41 Pulse Oximetry 98 05/31/22 10:41 Oxygen Delivery Me thod 05/31/22 10:41 MDM - Abdominal Pain Medical Decision Making Patient is a nice 31-year-old male here for abdominal pain, nausea, vomiting, diarrhea. He clinically appears in no acute distress. His vital signs are stable. He has not had any vomiting or diarrhea while here. Blood work today is unremarkable. He did have CT imaging performed on last visit and this was reviewed. I do not feel this needs to be repeated today. Patient feels much better after IV Lorazepam, Haldol, Reglan, and fluids. Given his history of cyclic episodes I do question the possibility of hyperemesis cannabinoid syndrome. There is question of GI bleeding as he mentioned to provider 2 days ago a dark maroon color of his emesis (not complaining of this today) and he is telling me his one diarrhea stool today was dark. His Hemoccult is negative. I will get patient set up with GI/general surgery to evaluate need for endoscopy/colonoscopy. Strict return ED precautions given in regards to repetitive episodes of vomiting (especially for any concerns of bloody emesis) or continued dark tarry stools. Lab Data 05/31/22 11:02 05/31/22 11:02 Labs/Radiology: Laboratory Results WBC 11.7 10^3/uL (4.0-10.0) H 05/31/22 11:02 RBC 4.90 10^6/uL (4.1-5.3) 05/31/22 11:02 Hgb 15.1 g/dL (11.7-16.6) 05/31/22 11:02 Hct 45.0 % (42.0-52.0) 05/31/22 11:02 MCV 91.8 fl (80-94) 05/31/22 11:02 MCH 30.8 pg (28.0-34.0) 05/31/22 11:02 MCHC 33.6 g/dL (30.0-36.0) 05/31/22 11:02 RDW 11.4 % (12.1-15.1) L 05/31/22 11:02 Plt Count 307 10^3/cmm (130-400) 05/31/22 11:02 MPV 10.0 fL (7.4-10.4) 05/31/22 11:02 Neut % (Auto) 76.0 % 05/31/22 11:02 Lymph % (Auto) 15.3 % 05/31/22 11:02 [place] % (Auto) 8.0 % 05/31/22 11:02 Eos % (Auto) 0.1 % 05/31/22 11:02 Baso % (Auto) 0.3 % 05/31/22 11:02 Neut # (Auto) 8.92 10^3/uL (1.8-7.7) H 05/31/22 11:02 Lymph # (Auto) 1.8 10^3/uL (0.8-4.8) 05/31/22 11:02 [place] # (Auto) 0.9 10^3/uL (0.2-0.9) 05/31/22 11:02 Eos # (Auto) 0.0 10^3/uL (0.0-0.8) 05/31/22 11:02 Baso # (Auto) 0.0 10^3/uL (0.0-0.1) 05/31/22 11:02 Nucleated RBC % (auto) 0 % 05/31/22 11:02 Nucleated RBCs # 0.0 /100WBC 05/31/22 11:02 Sodium 137 mmol/L (136-145) 05/31/22 11:02 Potassium 3.7 mmol/L (3.5-5.1) 05/31/22 11:02 Chloride 100 mmol/L (98-107) 05/31/22 11:02 Carbon Dioxide 27 mmol/L (22-29) 05/31/22 11:02 Anion Gap 13.7 (5-19) 05/31/22 11:02 BUN 11 mg/dL (6-20) 05/31/22 11:02 Creatinine 0.9 mg/dL (0.7-1.2) 05/31/22 11:02 GFR Calculation 97.8 mL/min (90-130) 05/31/22 11:02 Glucose 108 mg/dL (65-115) 05/31/22 11:02 Calculated Osmolality 284 mOsm/kg (285-295) L 05/31/22 11:02 Calcium 9.1 mg/dL (8.5-10.5) 05/31/22 11:02 Total Bilirubin 1.0 mg/dL (0.15-1.2) 05/31/22 11:02 AST 21 U/L (0-40) 05/31/22 11:02 ALT 20 U/L (0-41) 05/31/22 11:02 Alkaline Phosphatase 75 U/L (40-130) 05/31/22 11:02 Total Protein 6.8 g/dL (6.6-8.7) 05/31/22 11:02 Albumin 4.3 g/dL (3.5-5.2) 05/31/22 11:02 Globulin 2.5 g/dL (1.3-4.6) 05/31/22 11:02 Lipase 26 U/L (13-60) 05/31/22 11:02 Discharge Plan Discharge Patient Disposition: Home Clinical Impression: Abdominal pain, Nausea, vomiting, and diarrhea Condition: Stable Prescriptions: New promethazine 50 mg tablet 50 mg PO Q6H PRN (Reason: nausea/vomiting) Qty: 14 0RF No Action Zofran 4 mg Tablet 4 mg PO Q6H PRN (Reason: Nausea) Rx Instructions: pt states he took this today but threw it up Reglan 5 mg tablet 10 mg PO Q6H Qty: 30 0RF Rx Instructions: take 30 mins before meals to help with nausea. Protonix 40 mg tablet,delayed release (DR/EC) 40 mg PO DAILY Qty: 30 0RF Pepcid 40 mg tablet 40 mg PO BID 5 Days Qty: 10 0RF ondansetron 4 mg tablet,disintegrating 4 mg PO Q8H PRN (Reason: nausea and vomiting) Qty: 15 0RF oxycodone 5 mg tablet 5 mg PO Q4H PRN (Reason: pain) Qty: 10 0RF azithromycin 500 mg tablet 500 mg PO DAILY 5 Days Qty: 5 0RF Discharge Orders: Discharge ED (Routine); Ordered 05/31/22 Ordered By: Raquel Walters Referrals: Benoit Schilling DO [Primary Care Provider] - Patient Instructions: Abdominal Pain (ED) Coding Level of Care Code ED [facility] [employer] for [facility]
[2022-05-31 10:41] VITALS: BP 147/91; PULSE 80; RESP 18; TEMP 36.8; O2SAT 98; BMI 23.7
[2022-05-31 11:08] LABS: Basophils % 0.3 %; Eosinophils % 0.1 %; Hemoglobin 15.1 g/dL (11.7-16.6); Lymphocytes # 1.8 10^3/uL (0.8-4.8); Lymphocytes % 15.3 %; Mean Corpuscular HGB Conc 33.6 g/dL (30.0-36.0); Mean Corpuscular Hemoglobin 30.8 pg (28.0-34.0); Mean Corpuscular Volume 91.8 fl (80-94); Monocytes # 0.9 10^3/uL (0.2-0.9); Neutrophils # 8.92 10^3/uL (1.8-7.7); Nucleated Red Blood Cells % 0 %; Platelet Count 307 10^3/cmm (130-400); Red Cell Distribution Width 11.4 % (12.1-15.1); White Blood Count 11.7 10^3/uL (4.0-10.0)
[2022-05-31] MEDS: metoclopramide 5 mg/mL SDV 2 mL 10 MG IVP (11:25)
[2022-05-31] MEDS: LORazepam 2 mg/mL INJ 1 mL 1 MG IVP (11:25)
[2022-05-31] MEDS: haloperidol inj 5 mg/mL INJ 1 mL 2.5 MG IVP (11:26)
[2022-05-31 11:39] LABS: Alanine Aminotransferase 20 U/L (0-41); Albumin Level 4.3 g/dL (3.5-5.2); Alkaline Phosphatase 75 U/L (40-130); Anion Gap 13.7 (5-19); Aspartate Amino Transferase 21 U/L (0-40); Blood Urea Nitrogen 11 mg/dL (6-20); Calcium 9.1 mg/dL (8.5-10.5); Carbon Dioxide 27 mmol/L (22-29); Chloride 100 mmol/L (98-107); Creatinine Clr Calc Pharmacy 134.3313; Globulin 2.5 g/dL (1.3-4.6); Glomerular Filtration Rate 97.8 mL/min (90-130); Glucose 108 mg/dL (65-115); Lipase 26 U/L (13-60); Osmolality Calculated 284 mOsm/kg (285-295); Potassium 3.7 mmol/L (3.5-5.1); Sodium 137 mmol/L (136-145); Total Protein 6.8 g/dL (6.6-8.7)
--- NOTE | 2022-05-31 12:58 | DCPLANNER ---
Addendum entered by Demetria Bartlett 06/05/22 07:34: redevelopment manager received the following message from the general surgery clinic regarding follow up appointment: Spoke to patient he will talk with FA and get back in touch with us. Told him he would owe 100 dollars deposit day of visit if he didn't set up a plan with FA. On 05/31/22 @ 15:15 Jil Black Wrote To Valve Inspector Front Off Patient will need to speak to financial prior to scheduling an appointment due to balance being over 3000 On 05/31/22 @ 15:10 Esperanza Summers Wrote To Valve Inspector Front Off Left VM 05/31/22 Original Note: redevelopment manager had message to schedule a follow up appointment for patient with general surgery. redevelopment manager sent patients information to the front office staff at general surgery. Patients information will be printed and reviewed. Clinic will call patient with appointment information.
[2022-05-31 13:06] VITALS: BP 138/85; PULSE 76; RESP 18; O2SAT 98
== END 2022-05-31 13:07 | disposition home or self-care (01) ==
PROVIDERS: Emergency Provider Physician Assistant; PCP Internal Medicine
DX: R10.9 Unspecified abdominal pain (principal); R11.2 Nausea with vomiting, unspecified; R19.7 Diarrhea, unspecified
CPT/HCPCS: 36415; 80053; 83690; 85025; 96374; 96375; 99284; J1630; J2060; J2765

== ENCOUNTER 2022-08-27 08:51 | Emergency (ER) | payer SELFPAY ==
--- NOTE | 2022-08-27 09:24 | US_ITS ---
WS: [id number] RIGHT UPPER QUADRANT ULTRASOUND HISTORY: RUQ abdominal pain, n/v COMPARISON: 07/10/2019 Liver: 17.1 cm in length. Normal size liver and echogenicity. No bile duct dilatation or mass. Portal Vein: Normal hepatopetal flow with monophasic waveform. Gallbladder: Normally distended gallbladder with no stones or wall thickening. CBD: 0.4 cm Pancreas: Normal size and echogenicity. Right kidney: 10.0 cm in length. Normal size and echogenicity. No hydronephrosis or mass. Aorta and IVC: Unremarkable abdominal aorta and IVC. No ascites. US/US gall bladder [id number] IMPRESSION: Normal RIGHT upper quadrant ultrasound.
--- NOTE | 2022-08-27 09:25 | W.ED.ABDPA2 ---
HPI - Abdominal Pain General: Chief Complaint: Nausea/Vomiting/Diarrhea Stated Complaint: nausea, vomiting blood Time Seen by Provider: 08/27/22 08:58 History of Present Illness: Patient is a 32-year-old male who comes to the ED with abdominal pain, nausea and vomiting. Symptoms started approximately 5 days ago. Patient says he has had episodes like this in the past and he states that they are starting to become more frequent. Symptoms started 5 days ago after he ate some food. Abdominal pain is in right upper quadrant of the abdomen and he rates it currently a 7 out of 10. Pain worsens when he is vomiting. He says he is unable to keep any food or fluids down and every time he tries to eat something he throws it up. He states he has had constipation for the first couple of days of symptoms but within the last 24 hours he is started having some diarrhea. Over the last 24 hours he is also developed a little bit of red blood in his emesis. Endorses fever, chills and dark-colored urine. Associated Symptoms: Reports chills, constipation, diarrhea, fever(s), hematemesis, nausea and vomiting; Denies dysuria, hematochezia and hematuria Review of Systems Const: Reports: fever(s) and chills; Denies: fatigue Eyes: Denies: change in vision or eye discomfort ENMT: Denies: throat pain, odynophagia, nasal discharge or nasal congestion Card: Denies: chest pain, palpitations, edema, swelling of feet/ankles, dyspnea on exertion or orthopnea Resp: Denies: dyspnea, productive cough or non-productive cough GI: Reports: abdominal pain, nausea, vomiting, hematemesis, diarrhea and constipation; Denies: hematochezia : Denies: flank pain, difficulty urinating, dysuria or hematuria Musc: Denies: neck pain, back pain or extremity swelling Skin/Breast: Denies: rash or new lesions Neuro: Denies: headache(s), numbness in extremities or weakness in extremities PFS ED PFSH: Medical History No significant past medical history Surgical History No significant past surgical history Social History Smoking and tobacco status: current every day smoker Physical Exam Const: COMMON NORMALS: no acute distress, patient oriented x3 and alert GENERAL APPEARANCE: cooperative HENMT: COMMON NORMALS: normocephalic HEAD & SCALP: normocephalic MOUTH: Normal oral and palatal mucosa present THROAT: posterior oropharynx normal and uvula midline Neck/C-Spine: COMMON NORMALS: supple GENERAL: Yes normal visual inspection Resp: COMMON NORMALS: normal respiratory effort, No retractions, No use of accessory muscles and clear to auscultation bilaterally AUSCULTATION: clear to auscultation bilaterally Cardio: COMMON NORMALS: regular rate, regular rhythm, S1 normal heart sound present, S2 normal heart sound present, No gallops present (Cardio), No clicks present (Cardio), No murmurs present (Cardio) and Peripheral pulses 2+ throughout RATE: regular rate RHYTHM: regular rhythm HEART SOUNDS: S1 normal heart sound present and S2 normal heart sound present PERIPHERAL PULSES: Peripheral pulses 2+ throughout GI: COMMON NORMALS: Normal to inspection, nondistended, normoactive bowel sounds present, Soft to palpation and no masses PALPATION: Yes Soft to palpation and Yes Tenderness to palpation present (GI) Details: RUQ (Thibodeaux's point tenderness) : COMMON NORMALS: Yes no CVA tenderness BLADDER/KIDNEY EXAM: Yes no CVA tenderness Back/Pelvis: COMMON NORMALS: no CVA tenderness Extremity: COMMON NORMALS: normal to inspection Neuro: COMMON NORMALS: patient oriented x3 SENSORIUM/ORIENTATION: Yes alert GAIT: Yes Normal gait present Skin: GENERAL SKIN EXAM: dry skin Course Vital Signs: Vital signs: Vital Signs Temperature 98.1 F 08/27/22 09:28 Pulse Rate 57 L 08/27/22 12:27 Respiratory Rate 18 08/27/22 09:28 Blood Pressure 137/88 08/27/22 12:27 Pulse Oximetry 98 08/27/22 12:27 Oxygen Delivery Me thod Room Air 08/27/22 09:28 MDM - Abdominal Pain Medical Decision Making Patient is a 32-year-old male who comes to the ED with abdominal pain, nausea and vomiting. Symptoms started approximately 5 days ago. Patient says he has had episodes like this in the past and he states that they are starting to become more frequent. Symptoms started 5 days ago after he ate some food. Abdominal pain is in right upper quadrant of the abdomen and he rates it currently a 7 out of 10. Pain worsens when he is vomiting. He says he is unable to keep any food or fluids down and every time he tries to eat something he throws it up. He states he has had constipation for the first couple of days of symptoms but within the last 24 hours he is started having some diarrhea. Over the last 24 hours he is also developed a little bit of red blood in his emesis. Endorses fever, chills and dark-colored urine. Vitals are stable. Patient appears nontoxic and in no acute distress. He has some right upper quadrant tenderness with positive Thibodeaux sign. Rest of exam is benign. White blood cell count of 11 and the rest of CBC and CMP are unremarkable. T. bili was normal at 0.7. Ultrasound gallbladder showed no acute findings. Patient was given over 1.5 L of IV fluids, pain meds and nausea meds and his symptoms were controlled. He is able to tolerate p.o. fluids here in the ED. Patient diagnosed with biliary colic and I placed an order with case management for patient be referred to general surgery for follow-up. Patient was discharged home with nausea and pain med and told to clear liquid diet for the next 2 to 3 days then advance diet as tolerated. Return to ED precautions given. Patient understood and agreed with plan. Lab Data I reviewed the patient's lab results. 08/27/22 09:31 08/27/22 09:31 Labs/Radiology: Radiology Impressions Gallbladder Ultrasound 08/27/22 09:24 IMPRESSION: Normal RIGHT upper quadrant ultrasound. Laboratory Results WBC 11.0 10^3/uL (4.0-10.0) H 08/27/22 09:31 RBC 5.43 10^6/uL (4.1-5.3) H 08/27/22 09:31 Hgb 16.4 g/dL (11.7-16.6) 08/27/22 09:31 Hct 50.1 % (42.0-52.0) 08/27/22 09:31 MCV 92.3 fl (80-94) 08/27/22 09:31 MCH 30.2 pg (28.0-34.0) 08/27/22 09:31 MCHC 32.7 g/dL (30.0-36.0) 08/27/22 09: RDW 12.3 % (12.1-15.1) 08/27/22 09:31 Plt Count 337 10^3/cmm (130-400) 08/27/22 09:31 MPV 10.0 fL (7.4-10.4) 08/27/22 09:31 Neut % (Auto) 84.8 % 08/27/22 09:31 Lymph % (Auto) 9.7 % 08/27/22 09:31 [place] % (Auto) 4.5 % 08/27/22 09:31 Eos % (Auto) 0.5 % 08/27/22 09:31 Baso % (Auto) 0.2 % 08/27/22 09: Neut # (Auto) 9.33 10^3/uL (1.8-7.7) H 08/27/22 09:31 Lymph # (Auto) 1.1 10^3/uL (0.8-4.8) 08/27/22 09: [place] # (Auto) 0.5 10^3/uL (0.2-0.9) 08/27/22 09:31 Eos # (Auto) 0.1 10^3/uL (0.0-0.8) 08/27/22 09: Baso # (Auto) 0.0 10^3/uL (0.0-0.1) 08/27/22 09:31 Nucleated RBC % (auto) 0 % 08/27/22 09: Nucleated RBCs # 0.0 /100WBC 08/27/22 09:31 Sodium 139 mmol/L (136-145) 08/27/22 09:31 Potassium 4.0 mmol/L (3.5-5.1) 08/27/22 09:31 Chloride 101 mmol/L (98-107) 08/27/22 09:31 Carbon Dioxide 26 mmol/L (22-29) 08/27/22 09:31 Anion Gap 16.0 (5-19) 08/27/22 09:31 BUN 11 mg/dL (6-20) 08/27/22 09:31 Creatinine 1.1 mg/dL (0.7-1.2) 08/27/22 09:31 GFR Calculation 77.1 mL/min (90-130) L 08/27/22 09:31 Glucose 126 mg/dL (65-115) H 08/27/22 09:31 Calculated Osmolality 289 mOsm/kg (285-295) 08/27/22 09:31 Calcium 9.6 mg/dL (8.5-10.5) 08/27/22 09:31 Total Bilirubin 0.7 mg/dL (0.15-1.2) 08/27/22 09:31 AST 19 U/L (0-40) 08/27/22 09:31 ALT 16 U/L (0-41) 08/27/22 09:31 Alkaline Phosphatase 102 U/L (40-130) 08/27/22 09:31 Total Protein 7.8 g/dL (6.6-8.7) 08/27/22 09:31 Albumin 5.2 g/dL (3.5-5.2) 08/27/22 09:31 Globulin 2.6 g/dL (1.3-4.6) 08/27/22 09:31 Lipase 29 U/L (13-60) 08/27/22 09:31 Discharge Plan Discharge Patient Disposition: Home Clinical Impression: Biliary colic Condition: Stable Prescriptions: New Reglan 10 mg tablet 10 mg PO Q6H PRN (Reason: nausea and vomiting) Qty: 20 0RF Discharge Orders: Discharge ED (Routine); Ordered 08/27/22 Ordered By: Tiburcio Best Referrals: Benoit Schilling DO [Primary Care Provider] - Discharge Diet: Advance as tolerated, Regular and Clear Liquid Discharge Activity: Increase activity as tolerated Patient Instructions: Biliary Colic (ED), Opioid Safety Activity Restrictions/Additional Instructions: Follow-up with medical provider as directed. Case management regarding your neck several days set up an appointment with general surgery for follow-up on biliary colic. Take medications as prescribed. Clear liquid diet for the next 24 to 48 hours and slowly advance diet as tolerated. Return to the ER or your medical provider if condition worsens. Please read and understand discharge instructions. Thank you for choosing [facility] for your healthcare needs today. Please realize this is an emergency room and that we are providing you with a medical screening exam and this may not be complete and all inclusive of all the testing and or work up that you may need to determine your ailment or severity of your illness. It is very important that you follow up as instructed or that you return to the Emergency Department should you have concerns or if your condition changes or worsens in any way. Coding Level of Care Code ED Care Associate for Mechelle Ellington
[2022-08-27 09:28] VITALS: BP 132/83; PULSE 86; RESP 18; TEMP 36.7; O2SAT 100
[2022-08-27] MEDS: ondansetron 2 mg/ML SDV 2 mL 4 MG IVP (09:34)
[2022-08-27] MEDS: sodium chloride 0.9% 1,000 ML 999 ML IV ×2 (09:34→11:25)
[2022-08-27] MEDS: morphine 4 mg/mL SDV 1 mL IVP (09:34)
[2022-08-27 09:40] LABS: Basophils % 0.2 %; Eosinophils # 0.1 10^3/uL (0.0-0.8); Eosinophils % 0.5 %; Hematocrit 50.1 % (42.0-52.0); Hemoglobin 16.4 g/dL (11.7-16.6); Lymphocytes # 1.1 10^3/uL (0.8-4.8); Lymphocytes % 9.7 %; Mean Corpuscular HGB Conc 32.7 g/dL (30.0-36.0); Mean Corpuscular Hemoglobin 30.2 pg (28.0-34.0); Mean Corpuscular Volume 92.3 fl (80-94); Monocytes # 0.5 10^3/uL (0.2-0.9); Monocytes % 4.5 %; Neutrophils # 9.33 10^3/uL (1.8-7.7); Neutrophils % 84.8 %; Nucleated Red Blood Cells % 0 %; Platelet Count 337 10^3/cmm (130-400); Red Blood Count 5.43 10^6/uL (4.1-5.3); Red Cell Distribution Width 12.3 % (12.1-15.1)
[2022-08-27 10:05] LABS: Alanine Aminotransferase 16 U/L (0-41); Albumin Level 5.2 g/dL (3.5-5.2); Alkaline Phosphatase 102 U/L (40-130); Aspartate Amino Transferase 19 U/L (0-40); Blood Urea Nitrogen 11 mg/dL (6-20); Calcium 9.6 mg/dL (8.5-10.5); Carbon Dioxide 26 mmol/L (22-29); Chloride 101 mmol/L (98-107); Globulin 2.6 g/dL (1.3-4.6); Glomerular Filtration Rate 77.1 mL/min (90-130); Glucose 126 mg/dL (65-115); Lipase 29 U/L (13-60); Osmolality Calculated 289 mOsm/kg (285-295); Sodium 139 mmol/L (136-145); Total Bilirubin 0.7 mg/dL (0.15-1.2); Total Protein 7.8 g/dL (6.6-8.7)
[2022-08-27 10:27] VITALS: BP 145/86; PULSE 71; O2SAT 100
[2022-08-27 10:55] VITALS: BP 145/91; PULSE 51; O2SAT 99
[2022-08-27] MEDS: metoclopramide 5 mg/mL SDV 2 mL 10 MG IVP (11:22)
[2022-08-27] MEDS: HYDROmorphone 1 mg/mL INJ 1 mL IVP (11:22)
[2022-08-27 11:29] VITALS: BP 134/87; PULSE 53; O2SAT 100
[2022-08-27 11:56] VITALS: BP 141/86; PULSE 52; O2SAT 100
[2022-08-27 12:27] VITALS: BP 137/88; PULSE 57; O2SAT 98
--- NOTE | 2022-08-27 12:33 | PC.NURSE ---
Patient was discharged and wanted to wait in waiting room for his ride, stated dad was on his way to take him home.
--- NOTE | 2022-08-27 15:26 | DCPLANNER ---
Addendum entered by Demetria Bartlett 09/21/22 09:38: key account manager received the following message from the general surgery clinic regarding follow up appointment: Patient is declining for now On 09/07/22 @ 15:30 Demetria Bartlett Wrote To Demetria Bartlett (2) was an appointment scheduled for patient? Original Note: key account manager had message to schedule a follow up appointment for patient with general surgery. key account manager sent patients to the front office staff at general surgery. Patients information will be printed and reviewed. Clinic will call patient with appointment information.
== END 2022-08-27 12:28 | disposition home or self-care (01) ==
PROVIDERS: Emergency Provider Physician Assistant; PCP Internal Medicine
DX: K80.50 Calculus of bile duct without cholangitis or cholecystitis without obstruction (principal); F17.210 Nicotine dependence, cigarettes, uncomplicated
CPT/HCPCS: 76705; 80053; 83690; 85025; 96361; 96374; 96375; 99284; J1170; J2270; J2405; J2765; J7030

== ENCOUNTER 2022-11-16 12:26 | Emergency (ER) | payer SELFPAY ==
[2022-11-16 12:53] VITALS: BP 159/84; PULSE 45; RESP 18; TEMP 36.5; O2SAT 100; BMI 23.7
[2022-11-16 14:19] LABS: Basophils % 0.3 %; Eosinophils # 0.1 10^3/uL (0.0-0.8); Eosinophils % 0.4 %; Hematocrit 50.7 % (37-53); Lymphocytes # 1.4 10^3/uL (0.8-4.8); Lymphocytes % 11.3 %; Mean Corpuscular HGB Conc 32.5 g/dL (30-55); Mean Corpuscular Hemoglobin 30.9 pg (27-33); Mean Corpuscular Volume 94.9 fl (82-101); Mean Platelet Volume 10.8 fL (7.4-10.4); Monocytes # 0.7 10^3/uL (0.2-0.9); Monocytes % 5.9 %; Neutrophils # 10.08 10^3/uL (1.8-7.7); Neutrophils % 81.6 %; Nucleated Red Blood Cells % 0 %; Platelet Count 310 10^3/cmm (157-399); Red Blood Count 5.34 10^6/uL (3.85-5.65); Red Cell Distribution Width 12.4 % (12.1-15.1); White Blood Count 12.36 10^3/uL (3.29-11.43)
[2022-11-16 14:39] LABS: Lactic Sepsis W/Reflex 1.9 mmol/L (0.5-2.2)
[2022-11-16 14:40] LABS: Alanine Aminotransferase 23 U/L (0-41); Albumin Level 5.2 g/dL (3.5-5.2); Alkaline Phosphatase 91 U/L (40-130); Anion Gap 17.8 (5-19); Aspartate Amino Transferase 27 U/L (0-40); Blood Urea Nitrogen 11 mg/dL (6-20); Calcium 9.7 mg/dL (8.5-10.5); Carbon Dioxide 25 mmol/L (22-29); Chloride 104 mmol/L (98-107); Creatinine Clr Calc Pharmacy 133.0875; Globulin 2.8 g/dL (1.3-4.6); Glomerular Filtration Rate 97.2 mL/min (90-130); Glucose 121 mg/dL (65-115); Lipase 25 U/L (13-60); Osmolality Calculated 295 mOsm/kg (285-295); Potassium 4.8 mmol/L (3.5-5.1); Sodium 142 mmol/L (136-145)
--- NOTE | 2022-11-16 15:03 | CTR_ITS ---
PROCEDURE INFORMATION: Exam: CT Abdomen And Pelvis With Contrast Exam date and time: 11/16/2022 3:59 PM Age: 32 years old Clinical indication: Abdominal pain; Other: Ruq; Prior surgery; Surgery date: 6+ months; Surgery type: Hernia; Additional info: Right upper quadrant pain TECHNIQUE: Imaging protocol: Computed tomography of the abdomen and pelvis with contrast. Axial, coronal and sagittal reformatted images were created and reviewed. Radiation optimization: All CT scans at this facility use at least one of these dose optimization techniques: automated exposure control; mA and/or kV adjustment per patient size (includes targeted exams where dose is matched to clinical indication); or iterative reconstruction. Contrast material: OMNIPAQUE 350; Contrast volume: 100 ml; Contrast route: INTRAVENOUS (IV); REPORTING DATA: Count of CT and Cardiac NM exams in prior 12 months: This patient has received [address] and 0 known cardiac nuclear medicine studies in the 12 months prior to the current study. COMPARISON: CT angio abdomen pelvis [id number] 05/29/2022 7:52 PM RADIATION DOSE METRICS: Total DLP (mGy-cm): 440.03 FINDINGS: Diaphragm: Small hiatal hernia. Liver: Unremarkable. Gallbladder and bile ducts: No radiodense gallstones. No biliary ductal dilatation. Pancreas: Unremarkable. Spleen: Unremarkable. Adrenal glands: Normal. No mass. Kidneys and ureters: No mass. No radiodense calculi. No hydronephrosis. Stomach and bowel: No bowel wall thickening. No obstruction. No pneumatosis. Appendix: Normal. Intraperitoneal space: No free fluid. No organized fluid collection. No free air. Vasculature: Unremarkable. No aneurysm. Lymph nodes: No pathologically enlarged lymph nodes. Urinary bladder: Unremarkable as visualized. Reproductive: Unremarkable. Bones/joints: No acute osseous abnormality. Soft tissues: Unremarkable. CT/CT abdomen pelvis w con* [id number] IMPRESSION: 1. No CT evidence of acute intra-abdominal or pelvic pathology. 2. Additional findings, as above.
--- NOTE | 2022-11-16 15:24 | W.ED.ABDPA2 ---
HPI - Abdominal Pain General: Chief Complaint: Abdominal Pain Stated Complaint: lower abd pain Time Seen by Provider: 11/16/22 14:45 History of Present Illness: Alvin Dubois is a 32-year-old man that presents to the emergency department with right upper quadrant abdominal pain. Onset of symptoms 5 days ago but he has had previous episodes with last being in July 2022. Patient has been evaluated years before by a solar field installation crew member. Patient is also been referred to general surgeon for further evaluation. Patient has opted not to follow-up with general surgery due to financial burden. Patient states that at home he has trialed omeprazole, Phenergan, Patient is also trialed discontinuing marijuana use but has no impact on his symptoms Patient has discontinued all nicotine and tobacco products He is also discontinued alcohol use. Associated Symptoms: Denies bloating, chills, constipation, GI cramping, diarrhea, dysuria, fever(s), hematochezia, hematuria, nausea and vomiting Review of Systems General: Reports: 10 or more systems reviewed and unremarkable except in HPI and below Const: Denies: fever(s), chills, change in appetite, change in weight, fatigue or malaise Eyes: Denies: change in vision, eye discomfort, eye discharge or eye redness ENMT: Denies: throat pain, enlarged tonsils, odynophagia, hoarseness, ear or mastoid pain, ear discharge, change in hearing, tinnitus, nasal discharge, nasal congestion, post nasal drip or sinus pain Card: Denies: chest pain, palpitations, irregular heart rhythm, edema, dyspnea on exertion, orthopnea or leg pain with exertion Resp: Denies: dyspnea, productive cough, non-productive cough, wheezing, stridor or chest congestion GI: Denies: abdominal pain, nausea, vomiting, dysphagia, diarrhea, constipation, bloating, GI cramping or hematochezia : Denies: flank pain, dysuria, urinary frequency, urinary urgency, urinary hesitancy, oliguria or hematuria Musc: Denies: neck pain, back pain, extremity pain, joint pain, joint swelling, joint redness, joint warmth or muscle weakness Skin/Breast: Denies: rash, pruritus, erythema, photosensitivity or new lesions Neuro: Denies: headache(s), numbness in extremities, weakness in extremities, sensory changes, lack of coordination, difficulty walking, frequent falls, dizziness, confusion, Slurred speech present, difficulty communicating thoughts, seizure-like activity or involuntary movements Endo: Denies: polyuria, polydipsia or tired all the time [place]/Lymph: Denies: easy bruising or easy bleeding PFSH ED PFSH: Medical History No significant past medical history Surgical History No significant past surgical history Social History Smoking and tobacco status: current every day smoker Physical Exam Const: COMMON NORMALS: no acute distress, patient oriented x3 and alert GENERAL APPEARANCE: cooperative ORIENTATION/CONSCIOUSNESS: Yes awake, Yes oriented to person, Yes oriented to place and Yes oriented to time HENMT: COMMON NORMALS: normocephalic and atraumatic HEAD & SCALP: normocephalic and atraumatic FACE & SINUS: normal facial exam MOUTH: Normal oral and palatal mucosa present THROAT: posterior oropharynx normal Eye: COMMON NORMALS: Equal, round and reactive pupils present, EOMs intact bilaterally, conjunctivae normal and no scleral icterus GENERAL EYE: appearance normal, both eyes and all related structures ALIGNMENT: Yes alignment normal PERIORBITAL: periorbital findings normal CONJUNCTIVA: Yes conjunctivae normal PUPIL: Yes Equal, round and reactive pupils present Neck/C-Spine: COMMON NORMALS: full ROM GENERAL: Yes normal visual inspection Lymph: LYMPHATIC: no lymphadenopathy noted Chest: COMMONS NORMALS: normal inspection of the chest Breast/axilla inspection: Yes no chest deformity, asymmetry, normal contours, no nodules, masses, tenderness Resp: COMMON NORMALS: normal respiratory effort, No retractions, No use of accessory muscles and clear to auscultation bilaterally EFFORT & INSPECTION: Yes able to speak in complete sentences and Yes symmetric chest movement AUSCULTATION: clear to auscultation bilaterally Cardio: COMMON NORMALS: regular rate, regular rhythm and Peripheral pulses 2+ throughout RATE: regular rate RHYTHM: regular rhythm PERIPHERAL PULSES: Peripheral pulses 2+ throughout GI: COMMON NORMALS: Normal to inspection, nondistended, normoactive bowel sounds present, Soft to palpation, non-tender and No hepatosplenomegaly present INSPECTION: Yes normal to inspection AUSCULTATION: Yes normoactive bowel sounds PALPATION: Yes Soft to palpation and Yes No hepatosplenomegaly present RECTAL EXAM: Yes deferred Extremity: COMMON NORMALS: normal to inspection GENERAL: Yes normal exam except as noted Neuro: COMMON NORMALS: patient oriented x3 SENSORIUM/ORIENTATION: Yes alert, Yes oriented to person, Yes oriented to place and Yes oriented to time CRANIAL NERVES: Yes CN normal except as noted Psych: COMMON NORMALS: mental status grossly normal, Normal thought process present, cooperative, activity/motor behavior normal, denies homicidal ideation and denies suicidal ideation THOUGHT PROCESS: Normal thought process present Skin: COMMON NORMALS: no rashes or lesions noted, no wounds and turgor normal GENERAL SKIN EXAM: no rashes or lesions noted and turgor normal Course Vital Signs: Vital signs: Vital Signs Temperature 97.7 F 11/16/22 12:53 Pulse Rate 45 L 11/16/22 12:53 Respiratory Rate 18 11/16/22 15:49 Blood Pressure 159/84 11/16/22 12:53 Pulse Oximetry 99 11/16/22 15:49 Oxygen Delivery Me thod Room Air 11/16/22 12:53 MDM - Abdominal Pain Medical Decision Making Patient was evaluated in the emergency department today for the right upper quadrant abdominal pain. This episode started approximately 5 days ago and is progressively worsened. It is not relieved by any medication has been taking at home. Patient underwent laboratory and radiographic diagnostics which revealed hiatal hernia and a mild increase in his white blood cell count. There are no anemias or electrolyte disturbances. Lactic acid is normal. BUN and creatinine are normal. Patient was treated here in the emergency department with Zofran, fentanyl, a liter bolus and a GI cocktail. He also received Keflex for a urinary tract infection. Culture pending. To treat the patient for UTI and provide him with information on hiatal hernias. Patient is to follow-up with primary doctor to further discuss his symptoms. He has seen solar field installation crew member 2 years ago and was told he might have peptic ulcer disease. I encouraged him to follow-up there to further evaluate all questions answered Lab Data 11/16/22 13:55 11/16/22 13:55 Labs/Radiology: Radiology Impressions Abdomen/Pelvis CT 11/16/22 15:[address]: 1[address] No [address] evidence of acute intra-abdominal or pelvic pathology. 2. Additional findings, as above. Laboratory Results WBC 12.36 10^3/uL (3.29-11.43) H 11/16/22 13:55 RBC 5.34 10^6/uL (3.85-5.65) 11/16/22 13:55 Hgb 16.50 g/dL (11.27-16.99) 11/16/22 13:55 Hct 50.7 % (37-53) 11/16/22 13:55 MCV 94.9 fl (82-101) 11/16/22 13:55 MCH 30.9 pg (27-33) 11/16/22 13:55 MCHC 32.5 g/dL (30-55) 11/16/22 13:55 RDW 12.4 % (12.1-15.1) 11/16/22 13:55 Plt Count 310 10^3/cmm (157-399) 11/16/22 13:55 MPV 10.8 fL (7.4-10.4) H 11/16/22 13:55 Neut % (Auto) 81.6 % 11/16/22 13:55 Lymph % (Auto) 11.3 % 11/16/22 13:55 [place] % (Auto) 5.9 % 11/16/22 13:55 Eos % (Auto) 0.4 % 11/16/22 13:55 Baso % (Auto) 0.3 % 11/16/22 13:55 Neut # (Auto) 10.08 10^3/uL (1.8-7.7) H 11/16/22 13:55 Lymph # (Auto) 1.4 10^3/uL (0.8-4.8) 11/16/22 13:55 [place] # (Auto) 0.7 10^3/uL (0.2-0.9) 11/16/22 13:55 Eos # (Auto) 0.1 10^3/uL (0.0-0.8) 11/16/22 13:55 Baso # (Auto) 0.0 10^3/uL (0.0-0.1) 11/16/22 13:55 Nucleated RBC % (auto) 0 % 11/16/22 13:55 Nucleated RBCs # 0.0 /100WBC 11/16/22 13:55 Sodium 142 mmol/L (136-145) 11/16/22 13:55 Potassium 4.8 mmol/L (3.5-5.1) 11/16/22 13:55 Chloride 104 mmol/L (98-107) 11/16/22 13:55 Carbon Dioxide 25 mmol/L (22-29) 11/16/22 13:55 Anion Gap 17.8 (5-19) 11/16/22 13:55 BUN 11 mg/dL (6-20) 11/16/22 13:55 Creatinine 0.9 mg/dL (0.7-1.2) 11/16/22 13:55 GFR Calculation 97.2 mL/min (90-130) 11/16/22 13:55 Glucose 121 mg/dL (65-115) H 11/16/22 13:55 Calculated Osmolality 295 mOsm/kg (285-295) 11/16/22 13:55 Lactic Acid 1.9 mmol/L (0.5-2.2) 11/16/22 13:55 Calcium 9.7 mg/dL (8.5-10.5) 11/16/22 13:55 Total Bilirubin 1.0 mg/dL (0.15-1.2) 11/16/22 13:55 AST 27 U/L (0-40) 11/16/22 13:55 ALT 23 U/L (0-41) 11/16/22 13:55 Alkaline Phosphatase 91 U/L (40-130) 11/16/22 13:55 Total Protein 8.0 g/dL (6.6-8.7) 11/16/22 13:55 Albumin 5.2 g/dL (3.5-5.2) 11/16/22 13:55 Globulin 2.8 g/dL (1.3-4.6) 11/16/22 13:55 Lipase 25 U/L (13-60) 11/16/22 13:55 Urine Color Yellow (Yellow) 11/16/22 16:54 Urine Appearance Clear (CLEAR) 11/16/22 16:54 Urine pH 6.5 (5-7) 11/16/22 16:54 Ur Specific [place] 1.010 (1.005-1.030) 11/16/22 16:54 Urine Protein 1+ (Negative) H 11/16/22 16:54 Urine Glucose (UA) Norm (Normal) 11/16/22 16:54 Urine Ketones 3+ (Negative) H 11/16/22 16:54 Urine Blood Neg (Negative) 11/16/22 16:54 Urine Nitrate Positive (Negative) H 11/16/22 16:54 Urine Bilirubin 1+ (Negative) H 11/16/22 16:54 Urine Urobilinogen 4 mg/dL (Negative) H 11/16/22 16:54 Ur Leukocyte Esterase Trace (Negative) H 11/16/22 16:54 Urine RBC 0-4 /hpf (0-2) H 11/16/22 16:54 Urine WBC 5-10 /hpf (0-5) H 11/16/22 16:54 Ur Squamous Epith Cells 0-4 /hpf (0-5) H 11/16/22 16:54 Amorphous Sediment Not Reportable 11/16/22 16:54 Urine Bacteria Trace /hpf (NONE) 11/16/22 16:54 Hyaline Casts 0-4 /lpf H 11/16/22 16:54 Urine Mucus 4+ /hpf 11/16/22 16:54 Discharge Plan Discharge Patient Disposition: Home Clinical Impression: Abdominal pain, Constipation, Hernia, hiatal, Urinary tract infection Condition: Stable Prescriptions: New dicyclomine 20 mg tablet 20 mg PO BID PRN (Reason: abdominal pain) 7 Days Qty: 20 0RF cephalexin 500 mg capsule 500 mg PO Q6H 7 Days Qty: 28 0RF No Action ondansetron 4 mg tablet,disintegrating 8 mg PO Q8H PRN (Reason: NAUSEA OR VOMITING) Discharge Orders: Discharge ED (Routine); Ordered 11/16/22 Ordered By: Andrea Ghotra Referrals: Benoit Schilling DO [Primary Care Provider] - Discharge Diet: Advance as tolerated Discharge Activity: Resume usual activity Patient Instructions: Hiatal Hernia (ED), Irritable Bowel Syndrome (ED), Constipation (ED), Urinary Tract Infection in Men (ED), Abdominal Pain (ED), Pain Management Coding Level of Care Code ED Side Splitter for Mechelle Ellington
[2022-11-16] MEDS: ondansetron 2 mg/ML SDV 2 mL 4 MG IVP (15:48)
[2022-11-16 15:49] VITALS: RESP 18; O2SAT 99
[2022-11-16] MEDS: fentaNYL 50 mcg/mL INJ 2mL IVP (15:49)
[2022-11-16] MEDS: sodium chloride 0.9% 1,000 ML 999 ML IV ×2 (15:49→20:28)
[2022-11-16] MEDS: iohexol 350 mg/mL 500 mL Btl (per mL) IV (16:01)
[2022-11-16 17:49] LABS: Add Urine Microscopic? YES; Bilirubin Urine 1+ (Negative); Blood Urine Neg (Negative); Glucose Urine UA Norm (Normal); Ketones Urine 3+ (Negative); Leukocyte Esterase Urine Trace (Negative); Nitrate Urine Positive (Negative); Protein Urine 1+ (Negative); Urine Appearance Clear (CLEAR); Urine Color Yellow (Yellow); Urobilinogen Urine 4 mg/dL (Negative); pH Urine 6.5 (5-7)
[2022-11-16 17:56] LABS: Add Urine Culture? Yes; Bacteria Urine TRACE /hpf; Hyaline Casts Urine 0-4 /lpf; Mucus Urine 4+ /hpf; RBC Urine 0-4 /hpf (0-2); Squamous Epithelial Cell Urine 0-4 /hpf (0-5)
[2022-11-16] MEDS: aluminum-mag hydrox-simethicon 30 ML, sucralfate oral liq 1 GM PO (18:29)
[2022-11-16] MEDS: cephALEXin 500 mg Capsule PO (18:29)
[2022-11-16] MEDS: prochlorperazine 10 mg/2 mL Inj 5 MG IVP (20:28)
== END 2022-11-16 21:37 | disposition home or self-care (01) ==
PROVIDERS: Emergency Provider Nurse Practitioner; PCP Internal Medicine
DX: R10.11 Right upper quadrant pain (principal); K59.00 Constipation, unspecified; K44.9 Diaphragmatic hernia without obstruction or gangrene; N39.0 Urinary tract infection, site not specified; F17.210 Nicotine dependence, cigarettes, uncomplicated
CPT/HCPCS: 36415; 74177; 80053; 81001; 83605; 83690; 85025; 87086; 96374; 96375; 99285; J0780; J2405; J3010; J7030; J8498; Q9967

== ENCOUNTER 2023-02-22 15:39 | Emergency (ER) | payer SELFPAY ==
[2023-02-22 16:05] VITALS: BP 152/80; PULSE 72; RESP 20; TEMP 36.8; O2SAT 98; BMI 23.7
[2023-02-22 16:34] LABS: Basophils % 0.4 %; Hematocrit 51.2 % (37-53); Lymphocytes # 0.6 10^3/uL (0.8-4.8); Mean Corpuscular HGB Conc 33.6 g/dL (30-55); Mean Corpuscular Hemoglobin 30.6 pg (27-33); Mean Corpuscular Volume 91.1 fl (82-101); Mean Platelet Volume 10.2 fL (7.4-10.4); Monocytes # 0.3 10^3/uL (0.2-0.9); Monocytes % 6.1 %; Neutrophils # 4.56 10^3/uL (1.8-7.7); Neutrophils % 82.3 %; Nucleated Red Blood Cells % 0 %; Platelet Count 334 10^3/cmm (157-399); Red Blood Count 5.62 10^6/uL (3.85-5.65); White Blood Count 5.54 10^3/uL (3.29-11.43)
--- NOTE | 2023-02-22 16:41 | ED_ITS ---
HPI - Abdominal Pain 2 General: Chief Complaint: Abdominal Pain Stated Complaint: abd pain/NV Time Seen by Provider: 02/22/23 15:48 Source: patient History of Present Illness: 32-year-old male presents emergency room with complaints of abdominal pain. He states he intermittently has had abdominal pain for years as much is 12 years so get episodes or get epigastric discomfort cramping going to episodes of vomiting. Frequently has had ER visits for this he had his an EGD in the past he told me on some irritation to the stomach. No other definitive findings no previous abdominal surgeries MD elicited complaint: abdominal pain Pertinent past history: none Location: None Quality: aching Exacerbating factors: nothing Relieving factors: nothing Associated Symptoms: Reports GI cramping and vomiting; Denies anorexia, belching, bloating, change in bowel habits, change in stool character, chills, coffee ground emesis, constipation, diarrhea, dyspepsia, dysuria, excessive flatus, fever(s), heartburn, hematochezia, hematuria, hematemesis, fecal incontinence, loose stools, melena, nausea, poor appetite and syncope Review of Systems 2 Const: Denies: fever(s) or chills Card: Denies: chest pain or syncope Resp: Denies: dyspnea GI: Reports: vomiting and GI cramping; Denies: abdominal pain, nausea, hematemesis, coffee ground emesis, heartburn, diarrhea, constipation, bloating, belching, excessive flatus, fecal incontinence, change in bowel habits, change in stool character, hematochezia or melena : Denies: dysuria, urinary frequency, urinary urgency or hematuria Musc: Denies: neck pain or back pain Skin/Breast: Denies: rash PFSH ED 2 PFSH: Medical History No significant past medical history Surgical History No significant past surgical history Social History Smoking and tobacco/nicotine status: current every day tobacco/nicotine user Physical Exam 2 Const: GENERAL APPEARANCE: cooperative and comfortable O RIENTATION/CONSCIOUSNESS: Yes awake, Yes oriented to person, Yes oriented to place and Yes oriented to time HENMT: COMMON NORMALS: normocephalic, atraumatic and hearing grossly normal bilaterally HEAD & SCALP: normocephalic and atraumatic Resp: COMMON NORMALS: normal respiratory effort, No retractions, No use of accessory muscles and clear to auscultation bilaterally AUSCULTATION: clear to auscultation bilaterally Cardio: COMMON NORMALS: regular rate, regular rhythm and No murmurs present (Cardio) RATE: regular rate RHYTHM: regular rhythm GI: COMMON NORMALS: No hepatosplenomegaly present AUSCULTATION: Yes normoactive bowel sounds PALPATION: Yes Tenderness to palpation present (GI) (Epigastric), No Guarding due to palpation present (GI) and Yes No hepatosplenomegaly present Extremity: COMMON NORMALS: normal to inspection, capillary refill normal, no clubbing, cyanosis or edema, no calf tenderness and no pedal edema Neuro: SENSORIUM/ORIENTATION: Yes oriented to person, Yes oriented to place and Yes oriented to time Skin: COMMON NORMALS: no rashes or lesions noted GENERAL SKIN EXAM: no rashes or lesions noted Course 2 Vital Signs: Vital signs: Vital Signs Temperature 98.2 F 02/22/23 16:05 Pulse Rate 89 02/22/23 19:11 Respiratory Rate 16 02/22/23 19:11 Blood Pressure 110/56 02/22/23 19:11 Pulse Oximetry 92 02/22/23 19:11 Oxygen Delivery Me thod Room Air 02/22/23 18:44 MDM - Abdominal Pain Medical Decision Making Recurrent cyclical vomiting. Suspect some of it is caused by marijuana use discussion with patient discharge home in buccal lorazepam orally disintegrating olanzapine encouraged to minimize marijuana use recheck with primary care return to the ER if needed Medical Records I reviewed the patient's medical records. Lab Data I reviewed the patient's lab results. 02/22/23 16:05 02/22/23 16:05 Labs/Radiology: Laboratory Results WBC 5.54 10^3/uL (3.29-11.43) 02/22/23 16:05 RBC 5.62 10^6/uL (3.85-5.65) 02/22/23 16:05 Hgb 17.20 g/dL (11.27-16.99) H 02/22/23 16:05 Hct 51.2 % (37-53) 02/22/23 16:05 MCV 91.1 fl (82-101) 02/22/23 16:05 MCH 30.6 pg (27-33) 02/22/23 16:05 MCHC 33.6 g/dL (30-55) 02/22/23 16:05 RDW 12.0 % (12.1-15.1) L 02/22/23 16:05 Plt Count 334 10^3/cmm (157-399) 02/22/23 16:05 MPV 10.2 fL (7.4-10.4) 02/22/23 16:05 Neut % (Auto) 82.3 % 02/22/23 16:05 Lymph % (Auto) 11.0 % 02/22/23 16:05 [place] % (Auto) 6.1 % 02/22/23 16:05 Eos % (Auto) 0.0 % 02/22/23 16:05 Baso % (Auto) 0.4 % 02/22/23 16:05 Neut # (Auto) 4.56 10^3/uL (1.8-7.7) 02/22/23 16:05 Lymph # (Auto) 0.6 10^3/uL (0.8-4.8) L 02/22/23 16:05 [place] # (Auto) 0.3 10^3/uL (0.2-0.9) 02/22/23 16:05 Eos # (Auto) 0.0 10^3/uL (0.0-0.8) 02/22/23 16:05 Baso # (Auto) 0.0 10^3/uL (0.0-0.1) 02/22/23 16:05 Nucleated RBC % (auto) 0 % 02/22/23 16:05 Nucleated RBCs # 0.0 /100WBC 02/22/23 16:05 Sodium 142 mmol/L (136-145) 02/22/23 16:05 Potassium 4.5 mmol/L (3.5-5.1) 02/22/23 16:05 Chloride 101 mmol/L (98-107) 02/22/23 16:05 Carbon Dioxide 24 mmol/L (22-29) 02/22/23 16:05 Anion Gap 21.5 (5-19) H 02/22/23 16:05 BUN 15 mg/dL (6-20) 02/22/23 16:05 Creatinine 1.2 mg/dL (0.7-1.2) 02/22/23 16:05 GFR Calculation 69.7 mL/min (90-130) L 02/22/23 16:05 Glucose 117 mg/dL (65-115) H 02/22/23 16:05 Calculated Osmolality 296 mOsm/kg (285-295) H 02/22/23 16:05 Calcium 9.8 mg/dL (8.5-10.5) 02/22/23 16:05 Total Bilirubin 0.5 mg/dL (0.15-1.2) 02/22/23 16:05 AST 23 U/L (0-40) 02/22/23 16:05 ALT 24 U/L (0-41) 02/22/23 16:05 Alkaline Phosphatase 106 U/L (40-130) 02/22/23 16:05 Total Protein 8.2 g/dL (6.6-8.7) 02/22/23 16:05 Albumin 5.3 g/dL (3.5-5.2) H 02/22/23 16:05 Globulin 2.9 g/dL (1.3-4.6) 02/22/23 16:05 Lipase 36 U/L (13-60) 02/22/23 16:05 Urine Color Yellow (Yellow) 02/22/23 12:18 Urine Appearance Clear (CLEAR) 02/22/23 12:18 Urine pH 5 (5-7) 02/22/23 12:18 Ur Specific [place] 1.030 (1.005-1.030) 02/22/23 12:18 Urine Protein 2+ (Negative) H 02/22/23 12:18 Urine Glucose (UA) Norm (Normal) 02/22/23 12:18 Urine Ketones 3+ (Negative) H 02/22/23 12:18 Urine Blood Neg (Negative) 02/22/23 12:18 Urine Nitrate Negative (Negative) 02/22/23 12:18 Urine Bilirubin 1+ (Negative) H 02/22/23 12:18 Urine Urobilinogen 1 mg/dL (Negative) H 02/22/23 12:18 Ur Leukocyte Esterase Negative (Negative) 02/22/23 12:18 Urine RBC 0-4 /hpf (0-2) H 02/22/23 12:18 Urine WBC 0-4 /hpf (0-5) H 02/22/23 12:18 Ur Squamous Epith Cells 0-4 /hpf (0-5) H 02/22/23 12:18 Amorphous Sediment Not Reportable 02/22/23 12:18 Urine Bacteria Trace /hpf (NONE) 02/22/23 12:18 Urine Mucus 2+ /hpf 02/22/23 12:18 No radiology studies performed this visit Discharge Plan Discharge Patient Disposition: Home Clinical Impression: Cyclical vomiting Condition: Stable Prescriptions: New olanzapine 10 mg tablet,disintegrating 10 mg PO .Every 8 hours PRN (Reason: nausea and vomiting) Qty: 14 0RF Ativan 2 mg tablet 2 mg buccal Q6H PRN (Reason: nausea and vomiting) Qty: 14 0RF No Action ondansetron 4 mg tablet,disintegrating 8 mg PO Q8H PRN (Reason: NAUSEA OR VOMITING) promethazine 25 mg tablet 25 mg PO TID PRN (Reason: nausea and vomiting) Qty: 15 0RF Discharge Orders: Discharge ED (Routine); Ordered 02/22/23 Ordered By: Carlos Alcaraz Referrals: Benoit Schilling DO [Primary Care Provider] - Discharge Diet: Clear Liquid Discharge Activity: Increase activity as tolerated Patient Instructions: Opioid Safety, Pain Management Activity Restrictions/Additional Instructions: Thank you for choosing [facility] for your healthcare needs today. Please realize this is an emergency room and that we are providing you with a medical screening exam and this may not be complete and all inclusive of all the testing and or work up that you may need to determine your ailment or severity of your illness. It is very important that you follow up as instructed or that you return to the Emergency Department should you have concerns or if your condition changes or worsens in any way. You are seen today for persistent nausea vomiting. Recommend minimizing or abstaining from marijuana products is much as possible. You can use the olanzapine and Ativan as needed for recurrent nausea and vomiting. Clear liquid diet for 24 to 48 hours and advance as tolerated Coding Level of Care Code ED [place] for Mechelle Ellington
[2023-02-22 16:51] LABS: Alanine Aminotransferase 24 U/L (0-41); Albumin Level 5.3 g/dL (3.5-5.2); Alkaline Phosphatase 106 U/L (40-130); Anion Gap 21.5 (5-19); Aspartate Amino Transferase 23 U/L (0-40); Blood Urea Nitrogen 15 mg/dL (6-20); Calcium 9.8 mg/dL (8.5-10.5); Carbon Dioxide 24 mmol/L (22-29); Chloride 101 mmol/L (98-107); Globulin 2.9 g/dL (1.3-4.6); Glomerular Filtration Rate 69.7 mL/min (90-130); Glucose 117 mg/dL (65-115); Lipase 36 U/L (13-60); Osmolality Calculated 296 mOsm/kg (285-295); Potassium 4.5 mmol/L (3.5-5.1); Sodium 142 mmol/L (136-145); Total Bilirubin 0.5 mg/dL (0.15-1.2); Total Protein 8.2 g/dL (6.6-8.7)
[2023-02-22] MEDS: promethazine 25 mg/mL SDV 1 mL IM (17:25)
[2023-02-22] MEDS: sodium chloride 0.9% 1,000 ML 999 ML IV ×2 (17:29→18:20)
[2023-02-22 17:45] LABS: Add Urine Microscopic? YES; Bacteria Urine TRACE /hpf; Bilirubin Urine 1+ (Negative); Blood Urine Neg (Negative); Glucose Urine UA Norm (Normal); Ketones Urine 3+ (Negative); Leukocyte Esterase Urine Negative (Negative); Mucus Urine 2+ /hpf; Nitrate Urine Negative (Negative); Protein Urine 2+ (Negative); RBC Urine 0-4 /hpf (0-2); Squamous Epithelial Cell Urine 0-4 /hpf (0-5); Urine Appearance Clear (CLEAR); Urine Color Yellow (Yellow); Urobilinogen Urine 1 mg/dL (Negative); WBC Urine 0-4 /hpf (0-5); pH Urine 5 (5-7)
[2023-02-22] MEDS: haloperidol inj 5 mg/mL INJ 1 mL 2.5 MG IVP (18:20)
[2023-02-22 18:44] VITALS: BP 133/92; PULSE 68; O2SAT 95
[2023-02-22 19:11] VITALS: BP 110/56; PULSE 89; RESP 16; O2SAT 92
== END 2023-02-22 19:13 | disposition home or self-care (01) ==
PROVIDERS: Emergency Medicine; Emergency Provider Family Medicine; PCP Internal Medicine
DX: R11.15 Cyclical vomiting syndrome unrelated to migraine (principal); F12.90 Cannabis use, unspecified, uncomplicated
CPT/HCPCS: 36415; 80053; 81001; 83690; 85025; 96361; 96372; 96374; 96375; 99284; J1630; J2060; J2550; J7030

== ENCOUNTER 2023-07-22 18:28 | Emergency (ER) | payer SELFPAY ==
[2023-07-22 18:45] VITALS: BP 135/89; PULSE 93; RESP 16; TEMP 36.9; O2SAT 99
--- NOTE | 2023-07-22 18:50 | CTR_ITS ---
PROCEDURE INFORMATION: Exam: CT Abdomen And Pelvis With Contrast Exam date and time: 07/22/2023 7:02 PM Age: 32 years old Clinical indication: Abdominal pain; Localized; Patient HX: Upper abd pain, patient says he hasn't been able to have bm in the morning like usual since last Saturday and has been vomiting since then. TECHNIQUE: Imaging protocol: Computed tomography of the abdomen and pelvis with contrast. Radiation optimization: All CT scans at this facility use at least one of these dose optimization techniques: automated exposure control; mA and/or kV adjustment per patient size (includes targeted exams where dose is matched to clinical indication); or iterative reconstruction. Contrast material: OMNI 350; Contrast volume: 100 ml; Contrast route: INTRAVENOUS (IV); COMPARISON: CT abdomen pelvis w con* [id number] 11/16/2022 3:59 PM RADIATION DOSE METRICS: Total DLP (mGy-cm): 448 FINDINGS: Liver: Normal. No mass. Gallbladder and bile ducts: Normal. No calcified stones. No ductal dilation. Pancreas: Normal. No ductal dilation. Spleen: Normal. No splenomegaly. Adrenal glands: Normal. No mass. Kidneys and ureters: Normal. No hydronephrosis. Stomach and bowel: Unremarkable. No obstruction. No mucosal thickening. Appendix: No evidence of appendicitis. Intraperitoneal space: Unremarkable. No free air. No significant fluid collection. Vasculature: Unremarkable. No abdominal aortic aneurysm. Lymph nodes: Unremarkable. No enlarged lymph nodes. Urinary bladder: Unremarkable as visualized. Reproductive: Unremarkable as visualized. Bones/joints: Unremarkable. No acute fracture. Soft tissues: Unremarkable. CT/CT abdomen pelvis w con* [id number] IMPRESSION: 1. No bowel obstruction or inflammatory process associated with the bowel. 2. No free air or significant free fluid in the abdomen or pelvis. 3. No evidence of appendicitis.
--- NOTE | 2023-07-22 18:51 | ED_ITS ---
HPI - Nausea/Vomiting/Diarrhea 2 General: Chief complaint: Nausea/Vomiting/Diarrhea Stated complaint: abd pain, cant eat, has hernia Time Seen by Provider: 07/22/23 18:41 Source: patient Mode of arrival: ambulatory Limitations: no limitations History of Present Illness: 32-year-old male says he had a history o f hiatal hernia states he been having abdominal pain along with nausea vomiting the last few weeks he states he had constipation as well he states that pain is worsens in his epigastric region rates it as 7 out of 10 denies any fever denies any worsening proving factors Associated nausea: Yes Associated symtoms: Reports nausea; Denies chest pain, dysuria or headache(s) Review of Systems 2 Const: Denies: fever(s), chills, body aches or change in appetite ENMT: Denies: throat pain or dental pain Card: Denies: chest pain Resp: Denies: dyspnea GI: Reports: abdominal pain, nausea, vomiting and constipation; Denies: diarrhea : Denies: dysuria Musc: Denies: neck pain or back pain Skin/Breast: Denies: rash Neuro: Denies: headache(s) PFSH ED 2 PFSH: Medical History No significant past medical history Surgical History No significant past surgical history Social History Smoking and tobacco/nicotine status: current every day tobacco/nicotine user Physical Exam 2 Const: COMMON NORMALS: no acute distress, patient oriented x3 and healthy appearing HENMT: COMMON NORMALS: normocephalic and atraumatic HEAD & SCALP: n ormocephalic and atraumatic Neck/C-Spine: COMMON NORMALS: full ROM and supple Chest: COMMONS NORMALS: normal inspection of the chest and normal palpation of entire chest wall Resp: COMMON NORMALS: normal respiratory effort, No retractions, No use of accessory muscles and clear to auscultation bilaterally AUSCULTATION: clear to auscultation bilaterally Cardio: COMMON NORMALS: regular rate, regular rhythm and No murmurs present (Cardio) RATE: regular rate RHYTHM: regular rhythm GI: COMMON NORMALS: Normal to inspection, nondistended, normoactive bowel sounds present, Soft to palpation and no masses PALPATION: Yes Soft to palpation OTHER: epigastric tenderness Extremity: COMMON NORMALS: normal to inspection and full ROM Neuro: COMMON NORMALS: patient oriented x3, moves all extremities and no focal motor deficits Psych: COMMON NORMALS: mental status grossly normal, Normal thought process present and cooperative THOUGHT PROCESS: Normal thought process present Skin: COMMON NORMALS: no rashes or lesions noted and no wounds GENERAL SKIN EXAM: no rashes or lesions noted Course 2 Vital Signs: Vital signs: Vital Signs Temperature 98.4 F 07/22/23 18:45 Pulse Rate 74 07/22/23 20:04 Respiratory Rate 16 07/22/23 20:04 Blood Pressure 107/69 07/22/23 20:04 Pulse Oximetry 92 07/22/23 20:04 Oxygen Delivery Me thod Room Air 07/22/23 18:45 MDM - Nausea/Vomiting/Diarrhea Medical Decision Making Patient presents with upper abdominal pain along with nausea vomiting CT scan here is normal blood works normal as well we will place him on nausea meds he is to follow-up with PCP return if worsening he understands agrees to plan. Medical Records I reviewed the patient's medical records. Lab Data I reviewed the patient's lab results. 07/22/23 18:58 07/22/23 18:58 Radiology Impressions Abdomen/Pelvis CT 07/22/23 18:50 IMPRESSION: 1. No bowel obstruction or inflammatory process associated with the bowel. 2. No free air or significant free fluid in the abdomen or pelvis. 3. No evidence of appendicitis. Laboratory Results WBC 13.41 10^3/uL (3.29-11.43) H 07/22/23 18:58 RBC 5.57 10^6/uL (3.85-5.65) 07/22/23 18:58 Hgb 17.30 g/dL (11.27-16.99) H 07/22/23 18:58 Hct 47.7 % (37-53) 07/22/23 18:58 MCV 85.6 fl (82-101) 07/22/23 18:58 MCH 31.1 pg (27-33) 07/22/23 18:58 MCHC 36.3 g/dL (30-55) 07/22/23 18:58 RDW 11.8 % (12.1-15.1) L 07/22/23 18:58 Plt Count 360 10^3/cmm (157-399) 07/22/23 18:58 MPV 9.9 fL (7.4-10.4) 07/22/23 18:58 Neut % (Auto) 72.4 % 07/22/23 18:58 Lymph % (Auto) 16.1 % 07/22/23 18:58 [place] % (Auto) 10.8 % 07/22/23 18:58 Eos % (Auto) 0.1 % 07/22/23 18:58 Baso % (Auto) 0.3 % 07/22/23 18:58 Neut # (Auto) 9.71 10^3/uL (1.8-7.7) H 07/22/23 18:58 Lymph # (Auto) 2.2 10^3/uL (0.8-4.8) 07/22/23 18:58 [place] # (Auto) 1.5 10^3/uL (0.2-0.9) H 07/22/23 18:58 Eos # (Auto) 0.0 10^3/uL (0.0-0.8) 07/22/23 18:58 Baso # (Auto) 0.0 10^3/uL (0.0-0.1) 07/22/23 18:58 Nucleated RBC % (auto) 0 % 07/22/23 18:58 Nucleated RBCs # 0.0 /100WBC 07/22/23 18:58 Sodium 138 mmol/L (136-145) 07/22/23 18:58 Potassium 3.6 mmol/L (3.5-5.1) 07/22/23 18:58 Chloride 93 mmol/L (98-107) L 07/22/23 18:58 Carbon Dioxide 28 mmol/L (22-29) 07/22/23 18:58 Anion Gap 20.6 (5-19) H 07/22/23 18:58 BUN 20 mg/dL (6-20) 07/22/23 18:58 Creatinine 1.1 mg/dL (0.7-1.2) 07/22/23 18:58 GFR Calculation 77.1 mL/min (90-130) L 07/22/23 18:58 Glucose 110 mg/dL (65-115) 07/22/23 18:58 Calculated Osmolality 289 mOsm/kg (285-295) 07/22/23 18:58 Calcium 9.6 mg/dL (8.5-10.5) 07/22/23 18:58 Total Bilirubin 1.6 mg/dL (0.15-1.2) H 07/22/23 18:58 AST 24 U/L (0-40) 07/22/23 18:58 ALT 26 U/L (0-41) 07/22/23 18:58 Alkaline Phosphatase 92 U/L (40-130) 07/22/23 18:58 Total Protein 8.0 g/dL (6.6-8.7) 07/22/23 18:58 Albumin 4.9 g/dL (3.5-5.2) 07/22/23 18:58 Globulin 3.1 g/dL (1.3-4.6) 07/22/23 18:58 Lipase 38 U/L (13-60) 07/22/23 18:58 All radiology interpretation(s) finalized by discharge Discharge Plan Discharge Patient Disposition: Home Clinical Impression: Vomiting, Abdominal pain Condition: Stable Prescriptions: New ondansetron 4 mg tablet,disintegrating 4 mg PO Q6H PRN (Reason: nausea and vomiting) Qty: 14 0RF dicyclomine 20 mg tablet 20 mg PO TID PRN (Reason: abdominal pain) Qty: 20 0RF No Action ondansetron 4 mg tablet,disintegrating 8 mg PO Q8H PRN (Reason: NAUSEA OR VOMITING) promethazine 25 mg tablet 25 mg PO TID PRN (Reason: nausea and vomiting) Qty: 15 0RF olanzapine 10 mg tablet,disintegrating 10 mg PO .Every 8 hours PRN (Reason: nausea and vomiting) Qty: 14 0RF Ativan 2 mg tablet 2 mg buccal Q6H PRN (Reason: nausea and vomiting) Qty: 14 0RF Discharge Orders: Discharge ED (Routine); Ordered 07/22/23 Ordered By: Darian Laurent Referrals: Benoit Schilling DO [Primary Care Provider] - 1-3 days Discharge Diet: Advance as tolerated Discharge Activity: Resume usual activity Patient Instructions: Abdominal Pain (ED) Coding Level of Care Code ED [employer] Floor Layer for Chg Fwd
[2023-07-22] MEDS: iohexol 350 mg/mL 500 mL Btl (per mL) IV (19:06)
[2023-07-22] MEDS: ondansetron 2 mg/ML SDV 2 mL 4 MG IVP (19:12)
[2023-07-22] MEDS: morphine 4 mg/mL SDV 1 mL IVP (19:12)
[2023-07-22 19:17] VITALS: BP 116/73; PULSE 81; RESP 16; O2SAT 98
[2023-07-22 19:17] LABS: Basophils % 0.3 %; Eosinophils % 0.1 %; Hematocrit 47.7 % (37-53); Lymphocytes # 2.2 10^3/uL (0.8-4.8); Lymphocytes % 16.1 %; Mean Corpuscular HGB Conc 36.3 g/dL (30-55); Mean Corpuscular Hemoglobin 31.1 pg (27-33); Mean Corpuscular Volume 85.6 fl (82-101); Mean Platelet Volume 9.9 fL (7.4-10.4); Monocytes # 1.5 10^3/uL (0.2-0.9); Monocytes % 10.8 %; Neutrophils # 9.71 10^3/uL (1.8-7.7); Neutrophils % 72.4 %; Nucleated Red Blood Cells % 0 %; Platelet Count 360 10^3/cmm (157-399); Red Blood Count 5.57 10^6/uL (3.85-5.65); Red Cell Distribution Width 11.8 % (12.1-15.1); White Blood Count 13.41 10^3/uL (3.29-11.43)
[2023-07-22 19:30] LABS: Alanine Aminotransferase 26 U/L (0-41); Albumin Level 4.9 g/dL (3.5-5.2); Alkaline Phosphatase 92 U/L (40-130); Blood Urea Nitrogen 20 mg/dL (6-20); Calcium 9.6 mg/dL (8.5-10.5); Carbon Dioxide 28 mmol/L (22-29); Chloride 93 mmol/L (98-107); Creatinine Clr Calc Pharmacy 111.0957; Globulin 3.1 g/dL (1.3-4.6); Glomerular Filtration Rate 77.1 mL/min (90-130); Glucose 110 mg/dL (65-115); Lipase 38 U/L (13-60); Osmolality Calculated 289 mOsm/kg (285-295); Sodium 138 mmol/L (136-145); Total Bilirubin 1.6 mg/dL (0.15-1.2)
[2023-07-22 19:40] LABS: Anion Gap 20.6 (5-19); Aspartate Amino Transferase 24 U/L (0-40); Potassium 3.6 mmol/L (3.5-5.1)
[2023-07-22 20:04] VITALS: BP 107/69; PULSE 74; RESP 16; O2SAT 92
[2023-07-22] MEDS: sodium chloride 0.9% 1,000 ML 999 ML IV (20:41)
[2023-07-22 20:49] VITALS: BP 135/96; PULSE 62; RESP 18; O2SAT 91
== END 2023-07-22 21:39 | disposition home or self-care (01) ==
PROVIDERS: Emergency Provider Emergency Medicine; PCP Internal Medicine
DX: R11.11 Vomiting without nausea (principal); R10.13 Epigastric pain; Z72.0 Tobacco use
CPT/HCPCS: 36415; 74177; 80053; 83690; 85025; 96361; 96374; 96375; 99285; J2270; J2405; J7030; Q9967

== ENCOUNTER 2024-06-30 14:32 | Emergency (ER) | payer SELFPAY ==
[2024-06-30 15:04] VITALS: BP 153/83; PULSE 86; RESP 16; TEMP 36.7; O2SAT 98
[2024-06-30 15:37] VITALS: BP 133/92; PULSE 56; O2SAT 99
[2024-06-30 15:52] LABS: Basophils % 0.3 %; Eosinophils # 0.1 10^3/uL (0.0-0.8); Eosinophils % 0.5 %; Hematocrit 51.3 % (37-53); Lymphocytes # 1.3 10^3/uL (0.8-4.8); Lymphocytes % 13.8 %; Mean Corpuscular HGB Conc 33.5 g/dL (30-55); Mean Corpuscular Hemoglobin 31.7 pg (27-33); Mean Corpuscular Volume 94.5 fl (82-101); Mean Platelet Volume 10.4 fL (7.4-10.4); Monocytes # 0.6 10^3/uL (0.2-0.9); Monocytes % 6.5 %; Neutrophils # 7.18 10^3/uL (1.8-7.7); Neutrophils % 78.5 %; Nucleated Red Blood Cells % 0 %; Platelet Count 295 10^3/cmm (157-399); Red Blood Count 5.43 10^6/uL (3.85-5.65); Red Cell Distribution Width 12.3 % (12.1-15.1); White Blood Count 9.17 10^3/uL (3.29-11.43)
[2024-06-30 16:09] VITALS: BP 142/87; PULSE 55; RESP 18; O2SAT 99
[2024-06-30 16:13] LABS: Bilirubin Urine Negative (Negative); Blood Urine Negative (Negative); Glucose Urine UA Negative (Normal); Ketones Urine 2+ (Negative); Leukocyte Esterase Urine Trace (Negative); Nitrate Urine Negative (Negative); Protein Urine 2+ (Negative); Urine Appearance Turbid (CLEAR); Urine Color Dark Yellow (Yellow)
--- NOTE | 2024-06-30 16:15 | ED_ITS ---
Documented by User: GREG Roldan 06/30/24 16:59 HPI - Abdominal Pain 2 General: Chief Complaint: Abdominal Pain Stated Complaint: vomiting / abd pain Time Seen by Provider: 06/30/24 15:17 Source: patient Mode of arrival: ambulatory Limitations: no limitations History of Present Illness: Patient is a 33-year-old male presents to ED today with complaint of epigastric pain. This has been a longstanding ongoing problem for patient. He tells me a few years ago he was diagnosed with a hiatal hernia. Looking at previous documentation, this was found on CT imaging a few years ago and described as small. He states back in 2018 Dr. Singleton performed EGD but he is not sure on results. States following this he was placed on a PPI for several months which did not help with his symptoms. Today is patient's 8th ED visit since 2019 for identical symptoms. Since 2019 he has had 4 abdominal/pelvis CTs and 2 abdominal/gallbladder ultrasounds all of which without significant pathology. He has been diagnosed with things such as biliary colic, gastritis, cyclic vomiting syndrome due to habitual marijuana use, hiatal hernia, enteritis/colitis. He reportedly has not followed up with a specialist in quite some time stating it is difficult for him to take off work. He is not currently taking an H2 brenton/PPI stating that they do not work. He denies anti-inflammatory use or alcohol use. MD elicited complaint: abdominal pain Onset (ago): day(s) Pain Consistency: constant Location: Epigastric Severity: moderate Quality: aching and burning Radiation: none Migration to: no migration Exacerbating factors: eating Relieving factors: nothing Associated Symptoms: Reports heartburn, nausea and vomiting; Denies change in bowel habits, chills, diarrhea, dysuria, fever(s), hematochezia, hematemesis and melena Related Data Home Medications ?Medication ?Instructions ?Recorded ?Confirmed aluminum hydrox-magnesium carb 160 2 tab PO BID PRN He artburn 06/30/24 06/30/24 mg-105 mg chewable tablet Previous Rx's ?Medication ?Instructions ?Recorded ondansetron 4 mg disintegrating 4 mg PO Q6H PRN nausea and 07/22/23 tablet vomiting #14 tabs ondansetron HCl 4 mg tablet 4 mg PO Q8H #30 tabs 06/30 Allergies Allergy/AdvReac Type Severity Reaction Status Date / Time No Known Allergies Allergy Verified 06/30/24 15:08 Review of Systems 2 Const: Denies: fever(s), chills, body aches, fatigue or malaise Card: Denies: chest pain Resp: Denies: dyspnea GI: Reports: abdominal pain, nausea, vomiting and heartburn; Denies: hematemesis, diarrhea, change in bowel habits, hematochezia or melena : Denies: flank pain, difficulty urinating, dysuria, urinary frequency, urinary urgency or urinary hesitancy Musc: Denies: neck pain, back pain, extremity pain, extremity swelling, joint swelling or joint redness Skin/Breast: Denies: rash Neuro: Denies: headache(s), numbness in extremities, weakness in extremities, sensory changes or dizziness PFSH ED 2 PFSH: Medical History No significant past medical history Surgical History No significant past surgical history Social History Smoking and tobacco/nicotine status: current every day tobacco/nicotine user Physical Exam 2 Const: COMMON NORMALS: no acute distress, average body habitus, patient oriented x3, no limitations, healthy appearing, alert and well nourished G ENERAL APPEARANCE: cooperative ORIENTATION/CONSCIOUSNESS: Yes awake, Yes oriented to person, Yes oriented to place and Yes oriented to time Eye: COMMON NORMALS: no scleral icterus Resp: COMMON NORMALS: normal respiratory effort and clear to auscultation bilaterally AUSCULTATION: clear to auscultation bilaterally Cardio: COMMON NORMALS: regular rate and regular rhythm RATE: regular rate RHYTHM: regular rhythm GI: COMMON NORMALS: Normal to inspection, nondistended, normoactive bowel sounds present, Soft to palpation, No hepatosplenomegaly present and no masses INSPECTION: Yes normal to inspection AUSCULTATION: Yes normoactive bowel sounds PALPATION: Yes Soft to palpation, Yes Tenderness to palpation present (GI) (epigastric), No Guarding due to palpation present (GI), No Rigid due to palpation and Yes No hepatosplenomegaly present : COMMON NORMALS: Yes no CVA tenderness BLADDER/KIDNEY EXAM: Yes no CVA tenderness Back/Pelvis: COMMON NORMALS: no CVA tenderness Neuro: COMMON NORMALS: patient oriented x3 SENSORIUM/ORIENTATION: Yes alert, Yes oriented to person, Yes oriented to place and Yes oriented to time Course 2 Vital Signs: Vital signs: Vital Signs Temperature 98.1 F 06/30/24 15:04 Pulse Rate 52 L 06/30/24 18:00 Respiratory Rate 18 06/30/24 18:00 Blood Pressure 133/85 06/30/24 18:00 Pulse Oximetry 100 06/30/24 18:00 Oxygen Delivery Me thod Room Air 06/30/24 18:00 MDM - Abdominal Pain Lab Data 06/30/24 15:31 06/30/24 15:31 Labs/Radiology: Laboratory Results WBC 9.17 10^3/uL (3.29-11.43) 06/30/24 15: RBC 5.43 10^6/uL (3.85-5.65) 06/30/24: Hgb 17.20 g/dL (11.27-16.99) H 06/30/24: Hct 51.3 % (37-53) 06/30/24: MCV 94.5 fl (82-101) 06/30/24: MCH 31.7 pg (27-33) 06/30/24: MCHC 33.5 g/dL (30-55) 06/30/24 15: RDW 12.3 % (12.1-15.1) 06/30/24: Plt Count 295 10^3/cmm (157-399) 06/30/24: MPV 10.4 fL (7.4-10.4) 06/30/24 15: Neut % (Auto) 78.5 % 06/30/24: Lymph % (Auto) 13.8 % 06/30/24: [place] % (Auto) 6.5 % 06/30/24: Eos % (Auto) 0.5 % 06/30/24: Baso % (Auto) 0.3 % 06/30/24: Neut # (Auto) 7.18 10^3/uL (1.8-7.7) 06/30/24: Lymph # (Auto) 1.3 10^3/uL (0.8-4.8) 06/30/24: [place] # (Auto) 0.6 10^3/uL (0.2-0.9) 06/30/24: Eos # (Auto) 0.1 10^3/uL (0.0-0.8) 06/30/24 Baso # (Auto) 0.0 10^3/uL (0.0-0.1) 06/30/24 Nucleated RBC % (auto) 0 % 06/30/24 Nucleated RBCs # 0.0 /100WBC 06/30/24 Sodium 140 mmol/L (136-145) 06/30/24 Potassium 4.0 mmol/L (3.5-5.1) 06/30/24 Chloride 100 mmol/L (98-107) 06/30/24 Carbon Dioxide 23 mmol/L (22-29) 06/30/24 Anion Gap 21.0 (5-19) H 06/30/24 BUN 11 mg/dL (6-20) 06/30/24 Creatinine 1.0 mg/dL (0.7-1.2) 06/30/24 GFR Calculation 85.5 mL/min (90-130) L 06/30/24 Glucose 106 mg/dL (65-115) 06/30/24 Calculated Osmolality 290 mOsm/kg (285-295) 06/30/24 Calcium 10.0 mg/dL (8.5-10.5) 06/30/24 Total Bilirubin 0.9 mg/dL (0.15-1.2) 06/30/24 AST 22 U/L (0-40) 06/30/24 ALT 19 U/L (0-41) 06/30/24 Alkaline Phosphatase 86 U/L (40-130) 06/30/24 Total Protein 8.1 g/dL (6.6-8.7) 06/30/24 Albumin 5.1 g/dL (3.5-5.2) 06/30/24: Globulin 3.0 g/dL (1.3-4.6) 06/30/24 15: Lipase 110 U/L (13-60) H 06/30/24 15:31 Urine Color Dark yellow (Yellow) A 06/30/24 16:00 Urine Appearance Turbid (CLEAR) A 06/30/24 16:00 Urine pH 6.0 (5-7) 06/30/24 16:00 Ur Specific Eclectic 1.031 (1.005-1.030) H 06/30/24 16:00 Urine Protein 2+ (Negative) A 06/30/24 16:00 Urine Glucose (UA) Negative (Normal) 06/30/24 16:00 Urine Ketones 2+ (Negative) H 06/30/24 16:00 Urine Blood Negative (Negative) 06/30/24 16:00 Urine Nitrate Negative (Negative) 06/30/24 16:00 Urine Bilirubin Negative (Negative) 06/30/24 16:00 Urine Urobilinogen 1.0 mg/dL (Negative) 06/30/24 16:00 Ur Leukocyte Esterase Trace (Negative) A 06/30/24 16:00 Urine RBC 0-2 /hpf (0-2) 06/30/24 16:00 Urine WBC 0-5 /hpf (0-5) 06/30/24 16:00 Ur Squamous Epith Cells 0-5 /hpf (0-5) 06/30/24 16:00 Amorphous Sediment Not Reportable 06/30/24 16:00 Urine Bacteria None seen /hpf (NONE) 06/30/24 16:00 Hyaline Casts 6.61 /lpf 06/30/24 16:00 Discharge Plan Discharge Patient Disposition: Home Clinical Impression: Chronic upper abdominal pain Condition: Stable Prescriptions: New ondansetron HCl 4 mg tablet 4 mg PO Q8H Qty: 30 0RF No Action ondansetron 4 mg tablet,disintegrating 4 mg PO Q6H PRN (Reason: nausea and vomiting) Qty: 14 0RF Gaviscon 160-105 mg Tablet,Chewable 2 tab PO BID PRN (Reason: Heartburn) Discharge Orders: Discharge ED (Routine); Ordered 06/30/24 Ordered By: Wagner Cruz Patient Instructions: Abdominal Pain (ED) Activity Restrictions/Additional Instructions: Follow-up with gastroenterology. Drink plenty of fluids. [id number] Pepcid. Zofran for nausea. Return with any new or worsening. Please see the attached patient instructions for further education. Print Language: [place] Citizen Sign Out Sign Out Data: Patient Sign Out occurred on 06/30/24 at 17:18. Patient's care was discussed, and care was transferred from GREG Roldan to GREG Jacobsen. Coding Level of Care Code ED Sap Bi Developer for Chg Fwd Documented by User: GREG Jacobsen 06/30/24 18:18 HPI - Abdominal Pain 2 General: Chief Complaint: Abdominal Pain Stated Complaint: vomiting / abd pain Time Seen by Provider: 06/30/24 15:17 Related Data Home Medications ?Medication ?Instructions ?Recorded ?Confirmed aluminum hydrox-magnesium carb 160 2 tab PO BID PRN He artburn 06/30/24 06/30/24 mg-105 mg chewable tablet Previous Rx's ?Medication ?Instructions ?Recorded ondansetron 4 mg disintegrating 4 mg PO Q6H PRN nausea and 07/22/23 tablet vomiting #14 tabs ondansetron HCl 4 mg tablet 4 mg PO Q8H #30 tabs 06/30 Allergies Allergy/AdvReac Type Severity Reaction Status Date / Time No Known Allergies Allergy Verified 06/30/24 15:08 PFSH ED 2 PFSH: Medical History No significant past medical history Surgical History No significant past surgical history Social History Smoking and tobacco/nicotine status: current every day tobacco/nicotine user Course 2 Vital Signs: Vital signs: Vital Signs Temperature 98.1 F 06/30/24 15:04 Pulse Rate 52 L 06/30/24 18:00 Respiratory Rate 18 06/30/24 18:00 Blood Pressure 133/85 06/30/24 18:00 Pulse Oximetry 100 06/30/24 18:00 Oxygen Delivery Me thod Room Air 06/30/24 18:00 MDM - Abdominal Pain Medical Decision Making Care of patient transferred by GREG Roldan at shift change. Complaining of epigastric pain that has been ongoing, has been seen here in the ED multiple times for this with multiple CT images that have been negative. States that every time he is call to set up appointment with GI, he does not attend this due to monetary reasons. He did report to me that pain specifically worsened after went into labor, and he believes stress is a factor with this. Today his lab work was all unremarkable, mild bump in his lipase which appears to be new, no UTI on urinalysis. Lipase not significant elevated requiring hospitalization and he was started on fluids and given Reglan here for nausea as well as a GI cocktail. Also started on Protonix, ultimately will place another referral for GI specialist and I thoroughly encouraged him to follow-up with this for an upper endoscopy and general reevaluation. He states he will do so this time and he will be discharged in stable condition at this time. Told him to return if he gets worse, he verbalized understanding. Lab Data 06/30/24 15:31 06/30/24 15: Labs/Radiology: Laboratory Results WBC 9.17 10^3/uL (3.29-11.43) 06/30/24 15: RBC 5.43 10^6/uL (3.85-5.65) 06/30/24 15: Hgb 17.20 g/dL (11.27-16.99) H 06/30/24 15: Hct 51.3 % (37-53) 06/30/24 15: MCV 94.5 fl (82-101) 06/30/24: MCH 31.7 pg (27-33) 06/30/24: MCHC 33.5 g/dL (30-55) 06/30/24 15: RDW 12.3 % (12.1-15.1) 06/30/24 15: Plt Count 295 10^3/cmm (157-399) 06/30/24 15: MPV 10.4 fL (7.4-10.4) 06/30/24: Neut % (Auto) 78.5 % 06/30/24 Lymph % (Auto) 13.8 % 06/30/24 [place] % (Auto) 6.5 % 06/30/24 Eos % (Auto) 0.5 % 06/30/24 Baso % (Auto) 0.3 % 06/30/24 Neut # (Auto) 7.18 10^3/uL (1.8-7.7) 06/30/24 Lymph # (Auto) 1.3 10^3/uL (0.8-4.8) 06/30/24 [place] # (Auto) 0.6 10^3/uL (0.2-0.9) 06/30/24 Eos # (Auto) 0.1 10^3/uL (0.0-0.8) 06/30/24 Baso # (Auto) 0.0 10^3/uL (0.0-0.1) 06/30/24 Nucleated RBC % (auto) 0 % 06/30/24 Nucleated RBCs # 0.0 /100WBC 06/30/24 Sodium 140 mmol/L (136-145) 06/30/24 Potassium 4.0 mmol/L (3.5-5.1) 06/30/24 Chloride 100 mmol/L (98-107) 06/30/24 Carbon Dioxide 23 mmol/L (22-29) 06/30/24 Anion Gap 21.0 (5-19) H 06/30/24 BUN 11 mg/dL (6-20) 06/30/24 Creatinine 1.0 mg/dL (0.7-1.2) 06/30/24 GFR Calculation 85.5 mL/min (90-130) L 06/30/24 Glucose 106 mg/dL (65-115) 06/30/24 Calculated Osmolality 290 mOsm/kg (285-295) 06/30/24 Calcium 10.0 mg/dL (8.5-10.5) 06/30/24: Total Bilirubin 0.9 mg/dL (0.15-1.2) 06/30/24: AST 22 U/L (0-40) 06/30/24: ALT 19 U/L (0-41) 06/30/24 15: Alkaline Phosphatase 86 U/L (40-130) 06/30/24: Total Protein 8.1 g/dL (6.6-8.7) 06/30/24: Albumin 5.1 g/dL (3.5-5.2) 06/30/24 Globulin 3.0 g/dL (1.3-4.6) 06/30/24: Lipase 110 U/L (13-60) H 06/30/24: Urine Color Dark yellow (Yellow) A 06/30/24 16:00 Urine Appearance Turbid (CLEAR) A 06/30/24 16:00 Urine pH 6.0 (5-7) 06/30/24 16:00 Ur Specific Eclectic 1.031 (1.005-1.030) H 06/30/24 16:00 Urine Protein 2+ (Negative) A 06/30/24 16:00 Urine Glucose (UA) Negative (Normal) 06/30/24 16:00 Urine Ketones 2+ (Negative) H 06/30/24 16:00 Urine Blood Negative (Negative) 06/30/24 16:00 Urine Nitrate Negative (Negative) 06/30/24 16:00 Urine Bilirubin Negative (Negative) 06/30/24 16:00 Urine Urobilinogen 1.0 mg/dL (Negative) 06/30/24 16:00 Ur Leukocyte Esterase Trace (Negative) A 06/30/24 16:00 Urine RBC 0-2 /hpf (0-2) 06/30/24 16:00 Urine WBC 0-5 /hpf (0-5) 06/30/24 16:00 Ur Squamous Epith Cells 0-5 /hpf (0-5) 06/30/24 16:00 Amorphous Sediment Not Reportable 06/30/24 16:00 Urine Bacteria None seen /hpf (NONE) 06/30/24 16:00 Hyaline Casts 6.61 /lpf 06/30/24 16:00 No radiology studies performed this visit Discharge Plan Discharge Patient Disposition: Home Clinical Impression: Chronic upper abdominal pain Condition: Stable Prescriptions: New ondansetron HCl 4 mg tablet 4 mg PO Q8H Qty: 30 0RF No Action ondansetron 4 mg tablet,disintegrating 4 mg PO Q6H PRN (Reason: nausea and vomiting) Qty: 14 0RF Gaviscon 160-105 mg Tablet,Chewable 2 tab PO BID PRN (Reason: Heartburn) Discharge Orders: Discharge ED (Routine); Ordered 06/30/24 Ordered By: Wagner Cruz Patient Instructions: Abdominal Pain (ED) Activity Restrictions/Additional Instructions: Follow-up with gastroenterology. Drink plenty of fluids. [id number] Pepcid. Zofran for nausea. Return with any new or worsening. Please see the attached patient instructions for further education. Print Language: [place] Citizen Sign Out Sign Out Data: Patient Sign Out occurred on 06/30/24 at 17:18. Patient's care was discussed, and care was transferred from GREG Roldan to GREG Jacobsen. Coding Level of Care Code ED Sap Bi Developer for Mechelle Ellington
[2024-06-30 16:18] LABS: Alanine Aminotransferase 19 U/L (0-41); Albumin Level 5.1 g/dL (3.5-5.2); Alkaline Phosphatase 86 U/L (40-130); Aspartate Amino Transferase 22 U/L (0-40); Blood Urea Nitrogen 11 mg/dL (6-20); Carbon Dioxide 23 mmol/L (22-29); Chloride 100 mmol/L (98-107); Creatinine Clr Calc Pharmacy 118.6593; Glomerular Filtration Rate 85.5 mL/min (90-130); Glucose 106 mg/dL (65-115); Lipase 110 U/L (13-60); Osmolality Calculated 290 mOsm/kg (285-295); Sodium 140 mmol/L (136-145); Total Bilirubin 0.9 mg/dL (0.15-1.2); Total Protein 8.1 g/dL (6.6-8.7)
[2024-06-30 16:18] LABS: Add Urine Microscopic? YES; Bacteria Urine None Seen /hpf; Hyaline Casts Urine 6.61 /lpf; RBC Urine 0-2 /hpf (0-2); Squamous Epithelial Cell Urine 0-5 /hpf (0-5); WBC Urine 0-5 /hpf (0-5)
[2024-06-30 16:22] LABS: Add Urine Culture? No; Specific Gravity, Urine 1.031 (1.005-1.030)
[2024-06-30 17:00] VITALS: BP 125/68; PULSE 59; O2SAT 100
[2024-06-30] MEDS: lidocaine 2% viscous 15 ML, aluminum-mag hydrox-simethicon 30 ML, sucralfate oral liq 1 GM PO (17:15)
[2024-06-30] MEDS: sodium chloride 0.9% 1,000 ML 999 ML IV (17:22)
[2024-06-30] MEDS: pantoprazole 40 mg SDV IVP (17:24)
[2024-06-30] MEDS: metoclopramide 5 mg/mL SDV 2 mL 10 MG IVP (17:26)
[2024-06-30 18:00] VITALS: BP 133/85; PULSE 52; RESP 18; O2SAT 100
[2024-06-30 18:52] VITALS: BP 105/74; PULSE 63; O2SAT 100
--- NOTE | 2024-07-01 07:32 | DCPLANNER ---
Message sent to General Surgery - Care of patient transferred by GREG Roldan at shift change. Complaining of epigastric pain that has been ongoing, has been seen here in the ED multiple times for this with multiple CT images that have been negative. States that every time he is call to set up appointment with GI, he does not attend this due to monetary reasons. He did report to me that pain specifically worsened after went into labor, and he believes stress is a factor with this. Today his lab work was all unremarkable, mild bump in his lipase which appears to be new, no UTI on urinalysis. Lipase not significant elevated requiring hospitalization and he was started on fluids and given Reglan here for nausea as well as a GI cocktail. Also started on Protonix, ultimately will place another referral for GI specialist and I thoroughly encouraged him to follow-up with this for an upper endoscopy and general reevaluation. He states he will do so this time and he will be discharged in stable condition at this time. Told him to return if he gets worse, he verbalized understanding.
== END 2024-06-30 18:53 | disposition home or self-care (01) ==
PROVIDERS: Physician Assistant; Emergency Provider Physician Assistant
DX: R10.10 Upper abdominal pain, unspecified (principal); Z72.0 Tobacco use
CPT/HCPCS: 36415; 80053; 81001; 83690; 85025; 96361; 96374; 96375; 99284; J2470; J2765; J7030; J9999